=== PATIENT | female | born 1945 | race Caucasian/White ===

== ENCOUNTER 2017-05-07 20:28 | Inpatient (IN) | payer MEDICARE, OTHER ==
--- NOTE | 2017-05-07 21:21 | EDM.PDOC ---
ED HPI GENERAL MEDICAL PROBLEM - General Chief Complaint: Cardiovascular Problem Stated Complaint: PAIN UNDER LEFT BREAST SOB Time Seen by Provider: 05/07/17 20:45 Source of Information: Reports: Patient History Limitations: Reports: No Limitations - History of Present Illness INITIAL COMMENTS - FREE TEXT/NARRATIVE: The patient states that she developed left-sided chest pain around noon today while performing physical therapy exercises, however, the pain persists even if she remains still. She describes the pain as a dull ache. She has dyspnea on exertion, but no shortness of breath at rest. No recent fever, cough, or palpitations. No recent nausea, vomiting, constipation, diarrhea, or urinary symptoms. The patient is concerned, because she had similar symptoms in October 2015, and was subsequently diagnosed with a pulmonary embolus. She was initially started on Eliquis for 6 weeks, but her insurance company had her change to Lovenox, then Coumadin. A hypercoagulable workup per Dr. Diaz was negative. The patient remained on Coumadin until October 2016, at which time Dr. Diaz discontinued it, and has been on aspirin only since then. The patient was scheduled for a right total knee arthroplasty, and therefore held all of her medicines, but developed superficial thrombophlebitis of her right calf this past 05/02/2017, therefore the surgery has been rescheduled to May. The patient denies recent lower extremity edema. No injury to either lower extremity. No recent travel. The patient's PCP is Dr. Brii Esparza. Left Breast Pain Score (Numeric/FACES): 5 - Related Data Allergies Allergy/AdvReac Type Severity Reaction Status Date / Time No Known Allergies Allergy Verified 03/18/16 06:00 Home Meds: Home Meds . 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: Musculoskeletal History: Reports: Back Pain, Chronic - Infectious Disease History Infectious Disease History: Reports: Measles - Past Surgical History GI Surgical History: Reports: Appendectomy, Cholecystectomy, Colonoscopy, Lysis of Adhesions (x 1) Female Surgical History: Reports: Hysterectomy Musculoskeletal Surgical History: Reports: Other (See Below) (Spinal epidural injections) Social & Family History - Tobacco Use Smoking Status *Q: Never Smoker Second Hand Smoke Exposure: No - Caffeine Use Caffeine Use: Reports: Coffee, Soda, Tea - Alcohol Use Alcohol Use History: Yes Alcohol Use Frequency: Socially - Recreational Drug Use Recreational Drug Use: No - Living Situation & Occupation Living situation: Reports: , with Spouse Occupation: Retired ED ROS GENERAL - Review of Systems Review Of Systems: ROS reveals no pertinent complaints other than HPI. ED EXAM, GENERAL - Physical Exam Exam: See Below Exam Limited By: No Limitations General Appearance: Alert, WD/WN, No Apparent Distress Eye Exam: Bilateral Eye: Normal Inspection Ears: Normal External Exam, Hearing Grossly Normal Nose: Normal Inspection, No Blood Throat/Mouth: Normal Inspection, Normal Lips, Normal Voice, No Airway Compromise Head: Atraumatic, Normocephalic Neck: Normal Inspection, Full Range of Motion Respiratory/Chest: No Respiratory Distress, Lungs Clear, Normal Breath Sounds, No Accessory Muscle Use, Other (Reproducible tenderness to palpation of the left 4th intercostal space, anterior axillary line. No rub to auscultation of this area.). No: Crackles, Rhonchi, Wheezing, Pleural Rub Cardiovascular: Normal Peripheral Pulses, Regular Rate, Rhythm, No Gallop, No JVD, No Murmur, No Rub Peripheral Pulses: 4+: Radial (L), Radial (R) GI/Abdominal: Normal Bowel Sounds, Soft, Non-Tender, No Organomegaly, No Distention, No Abnormal Bruit, No Mass (Female) Exam: Deferred Rectal (Female) Exam: Deferred Back Exam: Normal Inspection, Full Range of Motion, NT Extremities: Normal Inspection, Normal Range of Motion, No Pedal Edema, Normal Capillary Refill, Other (Superficial thrombophlebitis to the posteromedial aspect of the right calf) Neurological: Alert, Oriented, Normal Cognition, No Motor/Sensory Deficits Psychiatric: Normal Affect Skin Exam: Warm, Dry, Intact, Normal Color, No Rash EKG INTERPRETATION EKG Date: 05/07/17 Time: 21:16 Rhythm: NSR Rate (Beats/Min): 73 Boyce: Normal P-Wave: Present QRS: Normal ST-T: Normal QT: Normal Comparison: NA - No Prior EKG Course - Vital Signs Last Recorded V/S: Last Vital Signs Temp 36.0 C 05/07/17 20:39 Pulse 79 05/07/17 20:39 Resp 22 H 05/07/17 20:39 BP 134/76 05/07/17 20:39 Pulse Ox 100 05/07/17 20:39 - Orders/Labs/Meds Orders: Active Orders 24 hr Category Date Time Status EKG Documentation Completion [RC] STAT Care 05/07/17 20:56 Active Ang Chest [CT] Stat Exams 05/07/17 22:08 Taken Chest 2V [CR] Stat Exams 05/07/17 20:56 Taken Sodium Chloride 0.9% [Normal Saline] 1,000 ml Med 05/07/17 22:15 Active IV ASDIRECTED Sodium Chloride 0.9% [Normal Saline] 100 ml Med 05/07/17 22:30 Active IV ASDIRECTED Sodium Chloride 0.9% [Saline Flush] Med 05/07/17 22:17 Active 10 ml FLUSH ONETIME PRN Warfarin [Coumadin] Med 05/07/17 23:47 Once 5 mg PO ONETIME ONE Medication Orders Sodium Chloride (Normal Saline) 1,000 mls @ 150 mls/hr IV ASDIRECTED TIAN Last Admin: 05/07/17 22:15 Dose: 150 mls/hr Sodium Chloride (Normal Saline) 100 mls @ 65 mls/hr IV ASDIRECTED TIAN Last Admin: 05/07/17 22:37 Dose: 65 mls/hr Sodium Chloride (Saline Flush) 10 ml FLUSH ONETIME PRN PRN Reason: IV FLUSH Last Admin: 05/07/17 22:37 Dose: 10 ml Labs: Laboratory Tests 05/07/17 05/07/17 05/07/17 Range/Units 21:09 21:09 21:09 WBC 9.91 (3.98-10.04) K/mm3 RBC 4.29 (3.98-5.22) M/mm3 Hgb 13.3 (11.2-15.7) gm/L Hct 40.0 (34.1-44.9) % MCV 93.2 (79.4-94.8) fl MCH 31.0 (25.6-32.2) pg MCHC 33.3 (32.2-35.5) g/dl RDW Std Deviation 45.3 (36.4-46.3) fL Plt Count 221 (182-369) K/mm3 MPV 9.4 (9.4-12.3) fl Neutrophils % (Manual) 72 H (40-60) % Band Neutrophils % 0 (0-10) % Lymphocytes % (Manual) 14 L (20-40) % Atypical Lymphs % 0 % Monocytes % (Manual) 14 H (2-10) % Eosinophils % (Manual) 0 L (0.7-5.8) % Basophils % (Manual) 0 L (0.1-1.2) Platelet Estimate Adequate Plt Morphology Comment Normal RBC Morph Comment Normal PT 10.2 (8.0-13.0) SECONDS INR 0.94 APTT 25 (22-36) SECONDS D-Dimer, Quantitative 4.02 H (0.19-0.59) mg/L Puncture Site ABG pH (7.35-7.45) ABG pCO2 (35.0-45.0) mmHg ABG pO2 (80.0-100.0) mmHg ABG HCO3 (22.0-26.0) meq/L ABG O2 Saturation (96.0-97.0) % ABG Base Excess (-2-2.0) Justin Test A-a Gradient mmHg O2 Delivery Device FiO2 (21.00-100.00) % Sodium 135 L (136-145) mEq/L Potassium 3.8 (3.5-5.1) mEq/L Chloride 101 (98-107) mEq/L Carbon Dioxide 25 (21-32) mEq/L Anion Gap 12.8 (5-15) BUN 11 (7-18) mg/dL Creatinine 0.8 (0.55-1.02) mg/dL Est Cr Clr Drug Dosing 66.43 mL/min Estimated GFR (MDRD) > 60 (>60) mL/min BUN/Creatinine Ratio 13.8 L (14-18) Glucose 140 H (83-115) mg/dL Calcium 8.8 (8.5-10.1) mg/dL Total Bilirubin 0.5 (0.2-1.0) mg/dL AST 17 (15-37) U/L ALT 25 (14-59) U/L Alkaline Phosphatase 71 (46-116) U/L Troponin I < 0.017 (0.00-0.056) ng/mL NT-Pro-B Natriuret Pep (0-125) pg/mL Total Protein 7.0 (6.4-8.2) g/dl Albumin 3.4 (3.4-5.0) g/dl Globulin 3.6 gm/dL Albumin/Globulin Ratio 0.9 L (1-2) 05/07/17 05/07/17 Range/Units 21:09 21:20 WBC (3.98-10.04) K/mm3 RBC (3.98-5.22) M/mm3 Hgb (11.2-15.7) gm/L Hct (34.1-44.9) % MCV (79.4-94.8) fl MCH (25.6-32.2) pg MCHC (32.2-35.5) g/dl RDW Std Deviation (36.4-46.3) fL Plt Count (182-369) K/mm3 MPV (9.4-12.3) fl Neutrophils % (Manual) (40-60) % Band Neutrophils % (0-10) % Lymphocytes % (Manual) (20-40) % Atypical Lymphs % % Monocytes % (Manual) (2-10) % Eosinophils % (Manual) (0.7-5.8) % Basophils % (Manual) (0.1-1.2) Platelet Estimate Plt Morphology Comment RBC Morph Comment PT (8.0-13.0) SECONDS INR APTT (22-36) SECONDS D-Dimer, Quantitative (0.19-0.59) mg/L Puncture Site Lt radial ABG pH 7.44 (7.35-7.45) ABG pCO2 35.7 (35.0-45.0) mmHg ABG pO2 75.0 L (80.0-100.0) mmHg ABG HCO3 23.6 (22.0-26.0) meq/L ABG O2 Saturation 96.3 (96.0-97.0) % ABG Base Excess 0.3 (-2-2.0) Justin Test Positive A-a Gradient 15 mmHg O2 Delivery Device Room air FiO2 21.00 (21.00-100.00) % Sodium (136-145) mEq/L Potassium (3.5-5.1) mEq/L Chloride (98-107) mEq/L Carbon Dioxide (21-32) mEq/L Anion Gap (5-15) BUN (7-18) mg/dL Creatinine (0.55-1.02) mg/dL Est Cr Clr Drug Dosing mL/min Estimated GFR (MDRD) (>60) mL/min BUN/Creatinine Ratio (14-18) Glucose (83-115) mg/dL Calcium (8.5-10.1) mg/dL Total Bilirubin (0.2-1.0) mg/dL AST (15-37) U/L ALT (14-59) U/L Alkaline Phosphatase (46-116) U/L Troponin I (0.00-0.056) ng/mL NT-Pro-B Natriuret Pep 193 H (0-125) pg/mL Total Protein (6.4-8.2) g/dl Albumin (3.4-5.0) g/dl Globulin gm/dL Albumin/Globulin Ratio (1-2) Meds: Medications Generic Name Dose Route Start Last Admin Trade Name Rushq PRN Reason Stop Dose Admin Sodium Chloride 1,000 mls @ 150 mls/hr 05/07/17 22:15 05/07/17 22:15 Normal Saline IV 150 mls/hr ASDIRECTED TIAN Administration Sodium Chloride 100 mls @ 65 mls/hr 05/07/17 22:30 05/07/17 22:37 Normal Saline IV 65 mls/hr ASDIRECTED TIAN Administration Sodium Chloride 10 ml 05/07/17 22:17 05/07/17 22:37 Saline Flush FLUSH 10 ml ONETIME PRN Administration IV FLUSH Discontinued Medications Generic Name Dose Route Start Last Admin Trade Name Rushq PRN Reason Stop Dose Admin Enoxaparin Sodium 80 mg 05/07/17 23:21 05/07/17 23:28 Lovenox SUBCUT 05/07/17 23:22 80 mg ONETIME STA Administration Hydromorphone HCl 0.5 mg 05/07/17 22:10 05/07/17 22:15 Dilaudid IVPUSH 05/07/17 22:11 0.5 mg ONETIME STA Administration Iopamidol 100 ml 05/07/17 22:17 05/07/17 22:37 Isovue-370 (76%) IVPUSH 05/07/17 22:18 100 ml ONETIME ONE Administration Warfarin Sodium 5 mg 05/07/17 23:47 Coumadin PO 05/07/17 23:48 ONETIME ONE - Re-Assessments/Exams Free Text/Narrative Re-Assessment/Exam: 05/07/17 21:29 Two-view chest radiograph appears to be grossly normal. Cardiac silhouette is within normal limits. No pulmonary vascular congestion. No pleural effusions. No focal infiltrate, although there does appear to be some pleural thickening seen on the lateral view only, just over the left anterior hemidiaphragm. No pneumothorax. Formal read per the Radiologist pending. 05/07/17 22:09 The D-dimer has returned substantially elevated at 4.02. I have ordered a CT angiogram of the chest to evaluate for PE, along with IV fluid. 05/07/17 23:22 CT angiogram of the chest is read by virtual radiology as: 1. RIGHT and LEFT segmental/subsegmental pulmonary emboli. 2. Possible mild pulmonary edema versus multifocal pneumonia. Possible LEFT posterior basilar lower lobe infarct versus pneumonia/atelectasis. Based on the CT angiogram results, I have ordered Lovenox 80 mg SQ. 05/07/17 23:51 Test results discussed with the patient. The patient had told me earlier that she had initially been put on our request following her prior diagnosis of a PE , however, her insurance company switched her to Coumadin after 6 weeks. Based on that information, I elected to start the patient on Lovenox this time, instead of starting her on one of the newer generation anticoagulants. This approach, however, requires to the hospital. The patient is agreeable with the plan. The CT and exam indicates a possible multifocal pneumonia, however, the patient does not have a fever, a cough, or an elevated WBC count, therefore I do not believe that the radiographic findings are due to pneumonia. I am not going to start her on an antibiotic. Case then discussed with Dr. Tamez at 23:42. She would like me to start the patient on Coumadin 5.0 mg at this time, and agrees to admit the patient. Departure - Departure Time of Disposition: 23:48 Disposition: Admitted As Inpatient 66 Condition: Fair Clinical Impression: Pulmonary emboli - My Orders Last 24 Hours: My Active Orders 05/07/17 20:56 EKG Documentation Completion [RC] STAT Chest 2V [CR] Stat 05/07/17 22:08 Ang Chest [CT] Stat 05/07/17 22:15 Sodium Chloride 0.9% [Normal Saline] 1,000 ml IV ASDIRECTED 05/07/17 22:17 Sodium Chloride 0.9% [Saline Flush] 10 ml FLUSH ONETIME PRN 05/07/17 22:30 Sodium Chloride 0.9% [Normal Saline] 100 ml IV ASDIRECTED 05/07/17 23:47 Warfarin [Coumadin] 5 mg PO ONETIME ONE - Assessment/Plan Last 24 Hours: My Active Orders 05/07/17 20:56 EKG Documentation Completion [RC] STAT Chest 2V [CR] Stat 05/07/17 22:08 Ang Chest [CT] Stat 05/07/17 22:15 Sodium Chloride 0.9% [Normal Saline] 1,000 ml IV ASDIRECTED 05/07/17 22:17 Sodium Chloride 0.9% [Saline Flush] 10 ml FLUSH ONETIME PRN 05/07/17 22:30 Sodium Chloride 0.9% [Normal Saline] 100 ml IV ASDIRECTED 05/07/17 23:47 Warfarin [Coumadin] 5 mg PO ONETIME ONE
[2017-05-07] MEDS ORDERED: HYDROmorphone 0.5 MG/0.5 ML SYRINGE IVPUSH STA (22:10)
[2017-05-07] MEDS ORDERED: Sodium Chloride 0.9% 1,000 ML IV SCH (22:15)
[2017-05-07] MEDS ORDERED: Iopamidol 755 Mg/ML 100 ML Bottle IVPUSH ONE (22:17)
[2017-05-07] MEDS ORDERED: Sodium Chloride 0.9% 10 ML Syringe FLUSH PRN (22:17)
[2017-05-07] MEDS ORDERED: Sodium Chloride 0.9% 100 ML IV SCH (22:30)
[2017-05-07] MEDS ORDERED: Enoxaparin 80 MG/0.8 ML Syringe SUBCUT STA (23:21)
[2017-05-07] MEDS ORDERED: Warfarin 5 MG Tab PO ONE (23:47)
[2017-05-08] MEDS ORDERED: Acetaminophen 325 MG Tab PO PRN (01:34)
[2017-05-08] MEDS ORDERED: Temazepam 15 MG Cap PO PRN (01:35)
[2017-05-08] MEDS ORDERED: Ondansetron 4 MG/2 ML SDV IVPUSH PRN (01:36)
[2017-05-08] MEDS ORDERED: Sodium Chloride 0.9% 1,000 ML IV SCH (01:45)
[2017-05-08] MEDS: HYDROmorphone 0.5 MG/0.5 ML SYRINGE IVPUSH PRN ×2 (02:17→08:51)
--- NOTE | 2017-05-08 06:21 | PCM.HP ---
H&P History of Present Illness - General Date of Service: 05/08/17 Admit Problem/Dx: Admission Diagnosis/Problem Admission Diagnosis/Problem Pulmonary embolism Source of Information: Patient, Provider History Limitations: Reports: No Limitations - History of Present Illness Onset of Symptoms: Reports: Sudden Duration of Symptoms: Reports: Hour(s): Location: Reports: Chest Quality: Reports: Same as Previous Episode Improves with: Reports: Medication Worsens with: Reports: Movement Associated Symptoms: Reports: Chest Pain, Cough Left Breast Pain Score (Numeric/FACES): 5 - Related Data Allergies/Adverse Reactions: Allergies Allergy/AdvReac Type Severity Reaction Status Date / Time No Known Allergies Allergy Verified 03/18/16 06:00 Home Medications: Home Meds . 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: Musculoskeletal History: Reports: Back Pain, Chronic - Infectious Disease History Infectious Disease History: Reports: Measles - Past Surgical History Head Surgeries/Procedures: Reports: None HEENT Surgical History: Reports: None Cardiovascular Surgical History: Reports: None Respiratory Surgical History: Reports: None GI Surgical History: Reports: Appendectomy, Cholecystectomy, Colonoscopy, Lysis of Adhesions Female Surgical History: Reports: Hysterectomy Musculoskeletal Surgical History: Reports: None, Other (See Below) Social & Family History - Tobacco Use Smoking Status *Q: Former Smoker Used Tobacco, but Quit: No Second Hand Smoke Exposure: No - Caffeine Use Caffeine Use: Reports: Coffee Other Caffeine Use: a cup of coffee every day - Recreational Drug Use Recreational Drug Use: No - Living Situation & Occupation Living situation: Reports: , with Spouse Occupation: Retired H&P Review of Systems - Review of Systems: Review Of Systems: See Below General: Reports: No Symptoms HEENT: Reports: No Symptoms Pulmonary: Reports: Pleuritic Chest Pain Cardiovascular: Reports: Dyspnea on Exertion Gastrointestinal: Reports: No Symptoms Genitourinary: Reports: No Symptoms Musculoskeletal: Reports: No Symptoms Skin: Reports: No Symptoms Psychiatric: Reports: No Symptoms Neurological: Reports: No Symptoms Hematologic/Lymphatic: Reports: No Symptoms Immunologic: Reports: No Symptoms Exam - Exam Exam: See Below - Vital Signs Vital Signs: Last Vital Signs Temp 37.1 C 05/08/17 01:14 Pulse 74 05/08/17 01:14 Resp 18 05/08/17 01:14 BP 126/48 L 05/08/17 01:14 Pulse Ox 100 05/08/17 01:14 Weight: 76.385 kg - Exam General: Alert, Oriented, Cooperative, Mild Distress HEENT: Conjunctiva Clear, Nares Patent, Normal Nasal Septum, Pupils Equal, Pupils Reactive, PERRLA Neck: Supple, Trachea Midline Lungs: Clear to Auscultation, Normal Respiratory Effort Cardiovascular: Regular Rate, Regular Rhythm GI/Abdominal Exam: Normal Bowel Sounds, Soft, Non-Tender, No Organomegaly, No Distention (Female) Exam: Deferred Rectal (Female) Exam: Deferred Back Exam: Normal Inspection Extremities: Normal Inspection, No Pedal Edema, Normal Capillary Refill Skin: Warm Neurological: Cranial Nerves Intact Neuro Extensive - Mental Status: Alert, Oriented x3, Normal Mood/Affect, Normal Cognition, Memory Intact Neuro Extensive - Motor, Sensory, Reflexes: CN II-XII Intact Psychiatric: Alert, Normal Affect, Normal Mood - Patient Data Lab Results Last 24 hrs: Laboratory Results - last 24 hr 05/08/17 05/08/17 Range/Units 02:10 04:47 WBC 8.79 (3.98-10.04) K/mm3 RBC 3.84 L (3.98-5.22) M/mm3 Hgb 12.0 (11.2-15.7) gm/L Hct 36.6 (34.1-44.9) % MCV 95.3 H (79.4-94.8) fl MCH 31.3 (25.6-32.2) pg MCHC 32.8 (32.2-35.5) g/dl RDW Std Deviation 45.6 (36.4-46.3) fL Plt Count 215 (182-369) K/mm3 MPV 9.8 (9.4-12.3) fl Neut % (Auto) 65.7 (34.0-71.1) % Lymph % (Auto) 19.7 (19.3-51.7) % [place] % (Auto) 13.7 H (4.7-12.5) % Eos % (Auto) 0.6 L (0.7-5.8) Baso % (Auto) 0.1 (0.1-1.2) % Neut # (Auto) 5.78 (1.56-6.13) K/mm3 Lymph # (Auto) 1.73 (1.18-3.74) K/mm3 [place] # (Auto) 1.20 H (0.24-0.36) K/mm3 Eos # (Auto) 0.05 (0.04-0.36) K/mm3 Baso # (Auto) 0.01 (0.01-0.08) K/mm3 PT 10.4 (8.0-13.0) SECONDS INR 0.96 Result Diagrams: 05/08/17 04:47 05/07/17 21:09 *Q Meaningful Use (ADM) - VTE *Q VTE Criteria *Q: - Stroke *Q Stroke Criteria *Q: - AMI *Q AMI Criteria *Q: - Problem List (1) Hyperlipidemia SNOMED Code(s): 82076318 ICD Code: E78.5 - HYPERLIPIDEMIA, UNSPECIFIED Status: Acute Current Visit : Yes (2) Pulmonary emboli SNOMED Code(s): 33880431 ICD Code: I26.99 - OTHER PULMONARY EMBOLISM WITHOUT ACUTE COR PULMONALE Status: Acute Current Visit: Yes Problem List Initiated/Reviewed/Updated: Yes Orders Last 24hrs: Active Orders 24 hr Category Date Time Status Bedrest Bathroom Privileges [RC] 10,22 Care 05/08/17 01:42 Active Communication Order [RC] , Care 05/08/17 01:40 Active Heart Healthy Diet [DIET] Diet 05/08/17 Breakfast Active BASIC METABOLIC PANEL,BMP [CHEM] Routine Lab 05/08/17 04:47 Received CRP [C-REACTIVE PROTEIN] [CHEM] Routine Lab 05/08/17 04:47 Received INR,PT,PROTHROMBIN TIME [COAG] Timed Lab 05/08/17 04:47 Received MAGNESIUM [CHEM] Routine Lab 05/08/17 04:47 Received PRO B-TYPE NATRIUR PEPT,BNPPRO [CHEM] Routine Lab 05/08/17 04:47 Received Acetaminophen [Tylenol] Med 05/08/17 01:34 Active 650 mg PO Q6H PRN Enoxaparin [Lovenox] Med 05/08/17 09:00 Active 80 mg SUBCUT Q12HR HYDROmorphone [Dilaudid] Med 05/08/17 01:38 Active 0.5 mg IVPUSH Q2H PRN Ondansetron [Zofran] Med 05/08/17 01:36 Active 4 mg IVPUSH Q8H PRN Sodium Chloride 0.9% [Normal Saline] 1,000 ml Med 05/08/17 01:45 Active IV ASDIRECTED Temazepam [Restoril] Med 05/08/17 01:35 Active 15 mg PO BEDTIME PRN Warfarin [Coumadin] Med 05/08/17 18:00 Active 5 mg PO DAILY@1800 Code Status [Resuscitation Status] Routine Resus Stat 05/08/17 01:47 Ordered Medication Orders Acetaminophen (Tylenol) 650 mg PO Q6H PRN PRN Reason: Pain/Fever Enoxaparin Sodium (Lovenox) 80 mg SUBCUT Q12HR [facility] Hydromorphone HCl (Dilaudid) 0.5 mg IVPUSH Q2H PRN PRN Reason: Pain Last Admin: 05/08/17 02:17 Dose: 0.5 mg Sodium Chloride (Normal Saline) 1,000 mls @ 50 mls/hr IV ASDIRECTED TIAN Stop: 05/08/17 08:00 Ondansetron HCl (Zofran) 4 mg IVPUSH Q8H PRN PRN Reason: Nausea Sodium Chloride (Saline Flush) 10 ml FLUSH ONETIME PRN PRN Reason: IV FLUSH Last Admin: 05/07/17 22:37 Dose: 10 ml Temazepam (Restoril) 15 mg PO BEDTIME PRN PRN Reason: Sleep Warfarin Sodium (Coumadin) 5 mg PO DAILY@1800 [facility] Assessment/Plan Comment:: Impression: Chest pain, bilateral PE History of previous right sided PE. Recent superficial thrombophlebitis Right knee arthroplasty--postponed Hyperlipidemia Plan: Lovenox with coumadin until Rx coverage for NOAC is determined Pharmacy to dose coumadin Home meds none Daily labs Pain mgt DVT/GI prophylaxis
[2017-05-08] MEDS ORDERED: Enoxaparin 80 MG/0.8 ML Syringe SUBCUT SCH (09:00)
[2017-05-08] MEDS ORDERED: Acetaminophen/HYDROcodone 325-5 MG Tab PO PRN (10:08)
--- NOTE | 2017-05-08 12:38 | PCM.SN ---
- Free Text/Narrative Note: Patient seen and examined with at bedside. She seems to be doing just fine. Her pain is controlled. We discussed anticoagulation options: Warfarin vs NOACs. She will call her local pharmacy and will let me know sometime today.
--- NOTE | 2017-05-08 13:01 | CR ---
Chest: Two views of the chest were obtained. Comparison: No prior chest x-ray is available. Heart size and mediastinum are within normal limits. Lungs are clear but hyperinflated suggesting emphysematous change. Previous right shoulder surgery is noted. Impression: 1. Emphysematous change. Nothing acute is appreciated. Diagnostic code #2
--- NOTE | 2017-05-08 13:01 | CT ---
CT chest Technique: Multiple axial sections through the chest were obtained. Intravenous contrast was utilized. Study has been performed as a pulmonary angiogram protocol. Findings: Multiple subsegmental pulmonary emboli are seen within both lower lung arteries as well as within several subsegmental branches within the right upper lung. No pulmonary emboli seen within the main pulmonary arteries or within the main segmental arteries. Mediastinum and hilar regions show no adenopathy or mass. No pericardial thickening is seen. Cyst identified within the left kidney measuring 5.3 cm. Cyst identified within the anterior right lobe of the liver measuring 9 mm. Mild intrahepatic biliary duct dilatation is seen. Small left-sided pleural effusion is seen with some loculation of the left lower lung pleural effusion. Mild ground-glass appearance is seen within both lower lungs most likely secondary to the pulmonary emboli. Bone window settings appear within normal limits for the patient's age. Incidental note of prior right shoulder surgery. Impression: 1. Small pulmonary emboli mostly subsegmental in location within both lower lungs and right upper lung. 2. Small left sided pleural effusion showing some loculations. 3. Mild basilar ground-glass appearance likely caused by the pulmonary emboli. 4. Other incidental findings as noted above. Diagnostic code #5 Agree with preliminary report issued by [employer] ([facility] preliminary report dictated on 05/08/17, 12:12 AM Central Time)
[2017-05-08] MEDS ORDERED: Warfarin Sliding Scale PO SCH (18:00)
[2017-05-08] MEDS ORDERED: Warfarin 5 MG Tab PO SCH (18:00)
--- NOTE | 2017-05-09 08:11 | PCM.DCSUM1 ---
Discharge Summary - Hospital Course Free Text/Narrative:: The patient states that she developed left-sided chest pain around noon today while performing physical therapy exercises, however, the pain persists even if she remains still. She describes the pain as a dull ache. She has dyspnea on exertion, but no shortness of breath at rest. No recent fever, cough, or palpitations. No recent nausea, vomiting, constipation, diarrhea, or urinary symptoms. The patient is concerned, because she had similar symptoms in October 2015, and was subsequently diagnosed with a pulmonary embolus. She was initially started on Eliquis for 6 weeks, but her insurance company had her change to Lovenox, then Coumadin. A hypercoagulable workup per Dr. Diaz was negative. The patient remained on Coumadin until October 2016, at which time Dr. Diaz discontinued it, and has been on aspirin only since then. The patient was scheduled for a right total knee arthroplasty, and therefore held all of her medicines, but developed superficial thrombophlebitis of her right calf this past 05/02/2017, therefore the surgery has been rescheduled to May. The patient denies recent lower extremity edema. No injury to either lower extremity. No recent travel. The patient's PCP is Dr. Brii Esparza. - Discharge Data Discharge Date: 05/09/17 (admit date 05/08/17) Discharge Disposition: Home, Self-Care 01 Condition: Good - Discharge Diagnosis/Problem(s) (1) Pulmonary emboli SNOMED Code(s): 86030455 ICD Code: I26.99 - OTHER PULMONARY EMBOLISM WITHOUT ACUTE COR PULMONALE Status: Acute Priority: High Current Visit: Yes Qualifiers: Pulmonary embolism type: other Chronicity: acute (2) Hyperlipidemia SNOMED Code(s): 61847697 ICD Code: E78.5 - HYPERLIPIDEMIA, UNSPECIFIED Status: Chronic Priority: Medium Current Visit: No Qualifiers: Hyperlipidemia type: unspecified Qualified Code(s): E78.5 - Hyperlipidemia , unspecified - Patient Summary/Data Operative Procedure(s) Performed: None Complications: None Consults: None Labs Pending at D/C: None Recommended Follow-up Testing/Procedures: Patient DC instructions: Follow up with your Primary Care Provider within 5 days of discharge Will need to decrease dose of Xarelto in 21 days- discuss with PCP IS every 2 hours while awake Ambulate Planned Operative Procedure(s) after DC: None Hospital Course: Maritza is a pleasant 72yo female admitted overnight for acute PE (has hx of prior PE, see above noted notes). She was initially given lovenox and coumadin in ED and admitted for overnight stay/observation. She did well overnight, VSS, maintained O2 saturations. Dr. Patel discussed anticoagulant options with her, she contacted her Pharmacy , elects Xarelto. She will be discharged home today on Xarelto 15mg BID x 21 days, follow up with PCP, Dr. Esparza, within 5 days of discharge. Education provided on PE, Xarelto therapy. - Patient Instructions Diet: Heart Healthy Diet, Drink 8-10+ Glasses/Day Activity: As Tolerated Showering/Bathing: May Shower Notify Provider of: Fever, Increased Pain, Swelling and Redness, Nausea and/or Vomiting - Discharge Plan Prescriptions/Med Rec: Acetaminophen/HYDROcodone [[place] 325-5 MG] 1 tab PO Q4H PRN #10 tablet PRN Reason: PAIN Rivaroxaban [Xarelto] 15 mg PO BID #42 tablet Home Medications: Home Meds Fish Oil/Sylva-3 Fatty Acids [Fish Oil] 500 mg PO DAILY 05/08/17 [History] Acetaminophen/HYDROcodone [[place] 325-5 MG] 1 tab PO Q4H PRN #10 tablet 05/09/17 [Rx] Rivaroxaban [Xarelto] 15 mg PO BID #42 tablet 05/09/17 [Rx] Patient Handouts: Rivaroxaban oral tablets, Pulmonary Embolism - Discharge Summary/Plan Comment DC Time >30 min.: Yes (40 min) - General Info Date of Service: 05/09/17 Admission Dx/Problem (Free Text: Admission Diagnosis/Problem Admission Diagnosis/Problem Pulmonary embolism Patient did well overnight. No concerns. VSS. Plans DC home today on xarelto. Functional Status: Reports: Pain Controlled, Tolerating Diet, Ambulating, Urinating, Incentive Spirometry - Review of Systems General: Reports: No Symptoms HEENT: Reports: No Symptoms Pulmonary: Reports: No Symptoms Cardiovascular: Reports: No Symptoms Gastrointestinal: Reports: No Symptoms Genitourinary: Reports: No Symptoms Musculoskeletal: Reports: No Symptoms Skin: Reports: No Symptoms Neurological: Reports: No Symptoms Psychiatric: Reports: No Symptoms - Patient Data Vitals - Most Recent: Last Vital Signs Temp 98.8 F 05/09/17 03:07 Pulse 56 L 05/09/17 03:07 Resp 16 05/09/17 03:07 BP 114/58 L 05/09/17 03:07 Pulse Ox 97 05/09/17 03:07 Weight - Most Recent: 168 lb I&O - Last 24 hours: Intake & Output 05/08/17 05/09/17 05/09/17 22:59 06:59 14:59 Intake Total 2460 600 Output Total 1250 1700 Balance 1210 -1100 Lab Results - Last 24 hrs: Laboratory Results - last 24 hr 05/08/17 05/09/17 05/09/17 Range/Units 04:47 05:35 05:35 WBC 5.64 (3.98-10.04) K/mm3 RBC 3.82 L (3.98-5.22) M/mm3 Hgb 11.8 (11.2-15.7) gm/L Hct 36.4 (34.1-44.9) % MCV 95.3 H (79.4-94.8) fl MCH 30.9 (25.6-32.2) pg MCHC 32.4 (32.2-35.5) g/dl RDW Std Deviation 45.9 (36.4-46.3) fL Plt Count 218 (182-369) K/mm3 MPV 9.6 (9.4-12.3) fl Neut % (Auto) 59.3 (34.0-71.1) % Lymph % (Auto) 25.4 (19.3-51.7) % [place] % (Auto) 13.5 H (4.7-12.5) % Eos % (Auto) 1.2 (0.7-5.8) Baso % (Auto) 0.2 (0.1-1.2) % Neut # (Auto) 3.35 (1.56-6.13) K/mm3 Lymph # (Auto) 1.43 (1.18-3.74) K/mm3 [place] # (Auto) 0.76 H (0.24-0.36) K/mm3 Eos # (Auto) 0.07 (0.04-0.36) K/mm3 Baso # (Auto) 0.01 (0.01-0.08) K/mm3 PT (8.0-13.0) SECONDS INR Sodium 137 (136-145) mEq/L Potassium 4.5 (3.5-5.1) mEq/L Chloride 103 (98-107) mEq/L Carbon Dioxide 27 (21-32) mEq/L Anion Gap 11.5 (5-15) BUN 12 (7-18) mg/dL Creatinine 0.7 (0.55-1.02) mg/dL Est Cr Clr Drug Dosing 75.92 mL/min Estimated GFR (MDRD) > 60 (>60) mL/min BUN/Creatinine Ratio 17.1 (14-18) Glucose 86 (83-115) mg/dL Calcium 8.7 (8.5-10.1) mg/dL Magnesium 2.2 (1.8-2.4) mg/dl C-Reactive Protein 6.1 H* (<1.0) mg/dL Med Orders - Current: Current Medications Acetaminophen (Tylenol) 650 mg PO Q6H PRN PRN Reason: Pain/Fever Hydrocodone Bitart/Acetaminophen ([place] 325-5 Mg) 1 tab PO Q4H PRN PRN Reason: PAIN Last Admin: 05/08/17 21:29 Dose: 1 tab Hydromorphone HCl (Dilaudid) 0.5 mg IVPUSH Q2H PRN PRN Reason: Pain Last Admin: 05/08/17 08:51 Dose: 0.5 mg Ondansetron HCl (Zofran) 4 mg IVPUSH Q8H PRN PRN Reason: Nausea Rivaroxaban (Xarelto) 15 mg PO BID TIAN Stop: 05/29/17 21:01 Sodium Chloride (Saline Flush) 10 ml FLUSH ONETIME PRN PRN Reason: IV FLUSH Last Admin: 05/07/17 22:37 Dose: 10 ml Temazepam (Restoril) 15 mg PO BEDTIME PRN PRN Reason: Sleep Discontinued Medications Enoxaparin Sodium (Lovenox) 80 mg SUBCUT ONETIME STA Stop: 05/07/17 23:22 Last Admin: 05/07/17 23:28 Dose: 80 mg Enoxaparin Sodium (Lovenox) 80 mg SUBCUT Q12HR TIAN Last Admin: 05/08/17 08:51 Dose: 80 mg Hydromorphone HCl (Dilaudid) 0.5 mg IVPUSH ONETIME STA Stop: 05/07/17 22:11 Last Admin: 05/07/17 22:15 Dose: 0.5 mg Sodium Chloride (Normal Saline) 1,000 mls @ 150 mls/hr IV ASDIRECTED [facility] Last Admin: 05/07/17 22:15 Dose: 150 mls/hr Sodium Chloride (Normal Saline) 100 mls @ 65 mls/hr IV ASDIRECTED [facility] Last Admin: 05/07/17 22:37 Dose: 65 mls/hr Sodium Chloride (Normal Saline) 1,000 mls @ 50 mls/hr IV ASDIRECTED [facility] Stop: 05/08/17 08:00 Iopamidol (Isovue-370 (76%)) 100 ml IVPUSH ONETIME ONE Stop: 05/07/17 22:18 Last Admin: 05/07/17 22:37 Dose: 100 ml Warfarin Sodium (Coumadin) 5 mg PO ONETIME ONE Stop: 05/07/17 23:48 Last Admin: 05/07/17 23:57 Dose: 5 mg Warfarin Sodium (Coumadin) 5 mg PO DAILY@1800 [facility] Warfarin Sodium (Coumadin Sliding Scale) 1 each PO DAILY TIAN - Exam Quality Assessment: Reports: DVT Prophylaxis General: Reports: Alert, Oriented, Cooperative, No Acute Distress HEENT: Reports: Pupils Equal, EOMI, Mucous Membr. Moist/[place] Neck: Reports: Supple Lungs: Reports: Normal Respiratory Effort, Decreased Breath Sounds Cardiovascular: Reports: Regular Rate, Regular Rhythm GI/Abdominal Exam: Normal Bowel Sounds, Soft, Non-Tender (Female) Exam: Deferred Rectal (Female) Exam: Deferred Back Exam: Reports: Normal Inspection Extremities: No Pedal Edema, Normal Capillary Refill Neurological: Reports: No New Focal Deficit Psy/Mental Status: Reports: Alert, Normal Affect, Normal Mood *Q Meaningful Use (DIS) - VTE *Q VTE Criteria *Q: - Stroke *Q Stroke Criteria *Q: - AMI *Q AMI Criteria *Q:
[2017-05-09 08:56] VITALS: BP 100/50
[2017-05-09] MEDS ORDERED: Rivaroxaban 10 MG Tab PO SCH (09:00)
== END 2017-05-09 10:48 | disposition home or self-care (01) | DRG 176 ==
LOC: JD.ED 20:28 → JD.MS 05-08 00:57
PROVIDERS: ADMIT Internal Medicine Cardiovascular Disease; ATTEND Internal Medicine Cardiovascular Disease
DX: I26.99 Other pulmonary embolism without acute cor pulmonale (principal); Z86.718 Personal history of other venous thrombosis and embolism; G89.29 Other chronic pain; E78.5 Hyperlipidemia, unspecified
CPT/HCPCS: 36415; 36600; 71046; 71275; 80053; 82803; 83880; 84484; 85025; 85379; 85610; 85730; 93005; 96361; 96372; 96374; 99285; A9270; J1170; J1650; J7030; J7040; J7050; Q9967; 80048; 83735; 86140

== ENCOUNTER 2018-04-10 08:19 | Day surgery (SDC) | payer MEDICARE, OTHER ==
[~2018-04-10 08:19] MED LIST: Acetaminophen 325 MG Tab PO SCH; Bisacodyl 5 MG Tab PO PRN; Cyclobenzaprine 10 MG Tab PO PRN; Lactated Ringers 1,000 ML IV SCH; Lidocaine 1%/Sod Bicarbonate in NS 8.4% 1 ML Syringe IDERM PRN; Magnesium Hydroxide 400 MG/5 ML Susp 30 ML Cup PO PRN; Morphine 2 MG/ML Syringe IVPUSH PRN; Naloxone 0.4 MG/ML SDV IVPUSH PRN; Ondansetron 4 MG/2 ML SDV IVPUSH PRN; Pregabalin 25 MG Cap PO SCH; Sennosides 8.6 MG Tab PO PRN; Sodium Chloride 0.9% 10 ML Syringe FLUSH PRN; oxyCODONE ER 10 MG TAB.ER PO SCH
--- NOTE | 2018-04-10 09:06 | PCM.PREANE ---
Preanesthetic Assessment - Anesthesia/Transfusion/Family Hx Anesthesia History: Prior Anesthesia Without Reaction Family History of Anesthesia Reaction: No Transfusion History: No Prior Transfusion(s) - Review of Systems General: No Symptoms Pulmonary: Other (hx of PE and DVT on xarelto with last dose 04/07/18 in am, last blood clot, 1 year ago) Cardiovascular: Other (ECHO, EF 60/65% no major issues, holter monitor, negative ) Gastrointestinal: No Symptoms Neurological: No Symptoms Other: Reports: Easy Bleeding, Easy Bruising (on xarelto) - Physical Assessment NPO Status Date: 04/09/18 NPO Status Time: 21:00 Pulse: 57 O2 Sat by Pulse Oximetry: 99 Respiratory Rate: 16 Blood Pressure: 118/68 Temperature: 36.4 C Vital Signs: Last Vital Signs Temp 36.4 C 04/10/18 08:35 Pulse 57 L 04/10/18 08:35 Resp 16 04/10/18 08:35 BP 118/68 04/10/18 08:35 Pulse Ox 99 04/10/18 08:35 Height: 1.75 m Weight: 73.1 kg ASA Class: 2 Mental Status: Alert & Oriented x3 Airway Class: Mallampati = 2 Dentition: Reports: Normal Dentition Thyro-Mental Finger Breadths: 3 Mouth Opening Finger Breadths: 3 ROM/Head Extension: Full Lungs: Clear to Auscultation, Normal Respiratory Effort Cardiovascular: Regular Rate, Regular Rhythm - Lab Values: Laboratory Last Values MRSA (PCR) Negative 03/22/18 11:50 - Allergies Allergies/Adverse Reactions: Allergies Allergy/AdvReac Type Severity Reaction Status Date / Time No Known Allergies Allergy Verified 04/07/18 14:39 - Blood Blood Available: No Product(s) Available: None - Anesthesia Plan Pre-Op Medication Ordered: None - Acknowledgements Anesthesia Type Planned: Spinal Pt an Appropriate Candidate for the Planned Anesthesia: Yes Alternatives and Risks of Anesthesia Discussed w Pt/Guardian: Yes Pt/Guardian Understands and Agrees with Anesthesia Plan: Yes PreAnesthesia Questionnaire HEENT History: Reports: Impaired Vision, Other (See Below) Other HEENT History: pt wears glasses Cardiovascular History: Reports: Blood Clots/VTE/DVT, High Cholesterol Other Cardiovascular History: leg venous ligation Respiratory History: Reports: PE Gastrointestinal History: Reports: Chronic Constipation Genitourinary History: Reports: None [employer] History: Reports: Musculoskeletal History: Reports: Back Pain, Chronic, Osteoarthritis, Other ( See Below) Other Musculoskeletal History: shoulder impingement, tibilais tendinitis, lower limb mononeuritis, congeintal pev cavus of right heel Neurological History: Reports: None Psychiatric History: Reports: None Endocrine/Metabolic History: Reports: Osteopenia, Vitamin D Deficiency Hematologic History: Reports: None Immunologic History: Reports: None Oncologic (Cancer) History: Reports: None Dermatologic History: Reports: None - Infectious Disease History Infectious Disease History: Reports: Measles - Past Surgical History Head Surgeries/Procedures: Reports: None HEENT Surgical History: Reports: None Cardiovascular Surgical History: Reports: None, Varicose Respiratory Surgical History: Reports: None GI Surgical History: Reports: Appendectomy, Cholecystectomy, Colonoscopy, Lysis of Adhesions Other GI Surgeries/Procedures: adhesions Female Surgical History: Reports: Cystoscopy, Hysterectomy Male Surgical History: Reports: None Endocrine Surgical History: Reports: None Neurological Surgical History: Reports: None Musculoskeletal Surgical History: Reports: Shoulder Surgery Oncologic Surgical History: Reports: None Dermatological Surgical History: Reports: None - SUBSTANCE USE Smoking Status *Q: Former Smoker Recreational Drug Use History: No - HOME MEDS Home Medications: Home Meds Acetaminophen with Codeine [Tylenol with Codeine #3 Tablet] 1 tab PO Q8H PRN [History] Calcium Carbonate [Calcium] 600 mg PO BID 04/07/18 [History] Cholecalciferol (Vitamin D3) [Vitamin D3] 5,000 unit PO DAILY 04/07/18 [History] Multivitamin [Poly-Vitamin] 1 tab PO DAILY 04/07/18 [History] Rivaroxaban [Xarelto] 20 mg PO DAILY 04/07/18 [History] - CURRENT (IN HOUSE) MEDS Current Meds: Current Medications Acetaminophen (Tylenol) 975 mg PO ONETIME TIAN Stop: 04/10/18 14:00 Bisacodyl (Dulcolax) 5 mg PO DAILY PRN PRN Reason: Constipation Cyclobenzaprine HCl (Flexeril) 10 mg PO TID PRN PRN Reason: Spasms Docusate Sodium (Colace) 100 mg PO BID TIAN Famotidine (Pepcid) 20 mg PO Q12H TIAN Lactated Ringer's (Ringers, Lactated) 1,000 mls @ 125 mls/hr IV ASDIRECTED [facility] Stop: 04/10/18 23:00 Cefazolin Sodium/Dextrose 2 gm (/ Premix) 50 mls @ 100 mls/hr IV Q8H [facility] Stop: 04/10/18 23:29 Ketorolac Tromethamine (Toradol) 15 mg IVPUSH Q6H PRN PRN Reason: Pain Lidocaine/Sodium Bicarbonate (Buffered Lidocaine 1% In Ns 8.4%) 0.25 ml IDERM ONETIME PRN PRN Reason: Prior to IV Start Stop: 04/10/18 18:00 Magnesium Hydroxide (Milk Of Magnesia) 30 ml PO BID PRN PRN Reason: Constipation Morphine Sulfate (Morphine) 2 mg IVPUSH Q2H PRN PRN Reason: Breakthrough Pain Naloxone HCl (Narcan) 0.1 mg IVPUSH Q5M PRN PRN Reason: Oversedation Ondansetron HCl (Zofran) 4 mg IVPUSH Q6H PRN PRN Reason: Nausea/Vomiting Oxycodone HCl (Oxycontin) 10 mg PO ONETIME [facility] Stop: 04/10/18 14:00 Oxycodone/Acetaminophen (Percocet 325-5 Mg) 1 - 2 tab PO Q4H PRN PRN Reason: Pain Pregabalin (Lyrica) 50 mg PO ONETIME [facility] Stop: 04/10/18 14:00 Senna (Senna) 8.6 mg PO BID PRN PRN Reason: Constipation Sodium Chloride (Saline Flush) 10 ml FLUSH ASDIRECTED PRN PRN Reason: Keep Vein Open Stop: 04/10/18 18:00 Discontinued Medications Morphine Sulfate 8 mg/Epinephrine HCl 0.3 mg/Cefuroxime Sodium 750 mg/Ketorolac Tromethamine 30 mg/Sodium Chloride 27.9 ml 0 mg .XX ONETIME ONE Stop: 04/10/18 06:57
[2018-04-10] MEDS ORDERED: EPINEPHrine 1 MG/ML SDV ONE (09:18)
[2018-04-10] MEDS ORDERED: Ropivacaine 0.5% 5 MG/ML 30 ML SDV ONE (09:18)
[2018-04-10] MEDS ORDERED: Propofol 200 MG/20 ML SDV ONE ×2 (09:46→09:47)
[2018-04-10] MEDS ORDERED: Ondansetron 4 MG/2 ML SDV ONE (09:47)
[2018-04-10] MEDS ORDERED: ceFAZolin 1 GM Vial ONE (09:47)
[2018-04-10] MEDS ORDERED: Lactated Ringers 1,000 ML ONE ×2 (09:47→13:47)
[2018-04-10] MEDS ORDERED: Dexamethasone 4 MG/ML SDV ONE ×2 (09:47→09:48)
[2018-04-10] MEDS ORDERED: Ketorolac 30 MG/ML SDV ONE (09:47)
[2018-04-10] MEDS ORDERED: fentaNYL 100 MCG/2 ML SDV ONE (09:48)
[2018-04-10] MEDS ORDERED: Midazolam 1 MG/ML 2 ML SDV ONE (09:48)
[2018-04-10] MEDS ORDERED: Lidocaine 1% 4 ML ONE (09:48)
[2018-04-10] MEDS ORDERED: ePHEDrine/Normal Saline 25 MG/5 ML Syringe ONE (12:31)
[2018-04-10] MEDS ORDERED: Phenylephrine/Normal Saline 100 MCG/ML 10 ML Syringe ONE (12:54)
[2018-04-10] MEDS: Iodine/Sodium Iodide 2% Tincture 30 ML Bottle ONE ×2 (12:56→13:17)
[2018-04-10] MEDS: ceFAZolin 1 GM Vial ONE ×2 (12:57→13:19)
[2018-04-10] MEDS: Morphine 8 MG, EPINEPHrine 0.3 MG, Cefuroxime 750 MG, Ketorolac 30 MG, Sodium Chloride ... ONE ×15 (12:57→15:51)
[2018-04-10] MEDS: Bupivacaine 0.25% 30 ML SDV ONE ×2 (12:58→13:23)
[2018-04-10] MEDS: Vancomycin 1 GM SDV ONE ×2 (12:58→13:26)
[2018-04-10] MEDS: Triamcinolone Acetonide 40 MG/ML 1 ML MDV ONE ×2 (12:59→13:49)
[2018-04-10] MEDS ORDERED: Ketorolac 15 MG/ML SDV IVPUSH PRN (13:00)
[2018-04-10] MEDS: Bupivacaine 0.25% 10 ML SDV ONE ×2 (13:00→13:49)
--- NOTE | 2018-04-10 14:01 | PCM.POSTAN ---
POST ANESTHESIA ASSESSMENT - MENTAL STATUS Mental Status: Alert, Oriented - VITAL SIGNS Pulse Rate: 76 SaO2: 97 Resp Rate: 18 Blood Pressure: 106/54 Temperature: 37.3 C - RESPIRATORY Respiratory Status: Respiratory Rate WNL, Airway Patent, O2 Saturation Stable, Supplemental Oxygen - CARDIOVASCULAR CV Status: Pulse Rate WNL, Blood Pressure Stable - GASTROINTESTINAL GI Status: No Symptoms - PAIN Pain Score: 0 - POST OP HYDRATION Hydration Status: Adequate & Stable
[2018-04-10] MEDS ORDERED: fentaNYL 100 MCG/2 ML SDV IVPUSH PRN (14:02)
--- NOTE | 2018-04-10 14:34 | PCM.SN ---
- Free Text/Narrative Note: Left selective femoral nerve block at the adductor canal for post-procedure pain control Time Out: 1400 Start: 1400 End: 1407 Chart reviewed. Consent signed. Questions answered. Appropriate monitors applied. Time out performed. Left mid-shaft femur evaluated with ultrasound. Scanning medially femur, I was able to identify the femoral artery in the adductor canal. The saphenous nerve was lateral to the artery. The skin was prepped lateral to the ultrasound probe with chlorahexadine. The 21ga 4 insulated block needle was inserted under direct ultrasound guidance into the adductor canal. 25mL of 0.5% ropivacaine with 1:200,000 epinephrine was injected cirmcumferentially about the nerve with intermittent negative aspiration every 5mL. Patient tolerated the procedure well. See pictures on progress note and vital signs on nurses notes. Block completed postoperatively. Rain Sosa CRNA
--- NOTE | 2018-04-10 14:35 | CR ---
Left knee: AP and lateral portable views of left knee were obtained. Comparison: No prior knee exam is available. Knee prosthesis is seen. Components are aligned. Soft tissue air is noted. Underlying bony structures are intact. Impression: 1. Satisfactory appearance of recently placed left knee prosthesis. Diagnostic code #2
[2018-04-10] MEDS ORDERED: HYDROmorphone 0.5 MG/0.5 ML Syringe IVPUSH PRN (14:38)
--- NOTE | 2018-04-10 16:17 | PCM.SN ---
- Free Text/Narrative Note: Maritza is a 73 yo [address] patient of Dr. Bhatt who is post-operative day 0 of L TKA and R cortisone injection. Hospital medicine was consulted for post- operative medical care. At this time she is stable. Pain is controlled. She denies any chest pain, shortness of breath, n/v, or palpitations. She carries a history of: PE, HLD, Vitamin D, Osteopenia. She is a former smoker. She is a full code. Her PCP is Dr. Brii Esparza.
[2018-04-10] MEDS: ceFAZolin 2 GM in Premix Bag 1 BAG IV SCH (19:44)
[2018-04-10] MEDS ORDERED: Enoxaparin 40 MG/0.4 ML Syringe SUBCUT ONE (21:00)
[2018-04-10] MEDS: Calcium Carbonate 600 MG Tab PO SCH (21:04)
[2018-04-10] MEDS: Famotidine 20 MG Tab PO SCH (21:04)
[2018-04-10] MEDS: Docusate Sodium 100 MG Cap PO SCH (21:04)
[2018-04-10] MEDS: Acetaminophen/oxyCODONE 325-5 MG Tab PO PRN (21:05)
--- NOTE | 2018-04-10 21:53 | PCM.OPNOTE ---
- General Post-Op/Procedure Note Date of Surgery/Procedure: 04/10/18 Operative Procedure(s): left total knee arthroplasty with right knee corticosteroid injection Pre Op Diagnosis: bilateral knee osteoarthrosis Post-Op Diagnosis: Same Anesthesia Technique: Local, MAC, Spinal Primary Surgeon: Randy Bhatt Anesthesia Provider: Yue Cruz Rn Transfer: Rosette Bragg Rn Transfer: Liz Kelly EBL in mLs: 5 Complications: None Condition: Good Free Text/Narrative:: Intake & Output 04/10/18 04/10/18 04/10/18 06:59 14:59 22:59 Intake Total 300 Balance 300 size 5 femur cemented size 4 tibia cemented [id number] patella cemented 9mm poly
[2018-04-11] MEDS: ceFAZolin 2 GM in Premix Bag 1 BAG IV SCH ×2 (03:37→10:50)
--- NOTE | 2018-04-11 06:18 | PCM.SN ---
- Free Text/Narrative Note: Maritza Ramirez is a 73yo female who is postoperative day 1 from a left total knee arthroplasty and right cortisone injection. She is a patient of Dr. Bhatt's and hospitalist medicine was consulted for medical management. Medications and past medical history reviewed. From a hospitalist standpoint she is doing very well. She denies any chest pain, shortness of breath, palpitations, dizziness, blurred vision, abdominal pain, pain with urination. Physical exam is unremarkable with regular rate and rhythm and clear lung sounds throughout all hernandez. Abdomen is soft and nontender. Mucous membranes are moist. She is neurovascularly intact with good sensation and 2+ pulses in all extremities. Vital signs have been stable. She has a history of bradycardia and is asymptomatic currently. Labs were reviewed: preoperatively GFR was greater than 90 and postoperatively is greater than 60. Hemoglobin preoperatively was 13.7 and today it is 11.2. No concerns from patient or staff. She has been ambulating with PT/OT and doing well. She has urinated and is off of oxygen. She will be cleared from discharge pending primary team and PT/OT agreement.
[2018-04-11] MEDS: Acetaminophen/oxyCODONE 325-5 MG Tab PO PRN ×2 (07:31→11:44)
--- NOTE | 2018-04-11 08:17 | PCM.SURGPN ---
- General Info Date of Service: 04/11/18 POD#: 1 Functional Status: Reports: Pain Controlled, Tolerating Diet, Ambulating, Urinating, Incentive Spirometry, Other (The pt states she is doing very well and has minimal pain.) - Patient Data Vitals - Most Recent: Last Vital Signs Temp 97.4 F 04/11/18 04:00 Pulse 53 L 04/11/18 04:07 Resp 16 04/11/18 04:00 BP 90/44 L 04/11/18 04:07 Pulse Ox 100 04/11/18 04:07 Weight - Most Recent: 161 lb 2.526 oz I&O - Last 24 Hours: Intake & Output 04/10/18 04/11/18 04/11/18 22:59 06:59 14:59 Output Total 900 1200 Balance -900 -1200 Lab Results Last 24 Hrs: Laboratory Results - last 24 hr 04/10/18 04/11/18 04/11/18 Range/Units 09:05 06:40 06:40 WBC 7.95 (3.98-10.04) K/mm3 RBC 3.63 L (3.98-5.22) M/mm3 Hgb 11.2 (11.2-15.7) gm/L Hct 35.4 (34.1-44.9) % MCV 97.5 H (79.4-94.8) fl MCH 30.9 (25.6-32.2) pg MCHC 31.6 L (32.2-35.5) g/dl RDW Std Deviation 45.4 (36.4-46.3) fL Plt Count 209 (182-369) K/mm3 MPV 9.5 (9.4-12.3) fl PT 11.2 (9.5-12.1) SECONDS INR 1.03 Sodium 138 (136-145) mEq/L Potassium 4.2 (3.5-5.1) mEq/L Chloride 105 (98-107) mEq/L Carbon Dioxide 28 (21-32) mEq/L Anion Gap 9.2 (5-15) BUN 12 (7-18) mg/dL Creatinine 0.7 (0.55-1.02) mg/dL Est Cr Clr Drug Dosing 74.80 mL/min Estimated GFR (MDRD) > 60 (>60) mL/min BUN/Creatinine Ratio 17.1 (14-18) Glucose 125 H (83-115) mg/dL Calcium 8.7 (8.5-10.1) mg/dL Total Bilirubin 0.3 (0.2-1.0) mg/dL AST 28 (15-37) U/L ALT 34 (14-59) U/L Alkaline Phosphatase 52 (46-116) U/L Total Protein 6.1 L (6.4-8.2) g/dl Albumin 2.9 L (3.4-5.0) g/dl Globulin 3.2 gm/dL Albumin/Globulin Ratio 0.9 L (1-2) Med Orders - Current: Current Medications Bisacodyl (Dulcolax) 5 mg PO DAILY PRN PRN Reason: Constipation Calcium Carbonate/Glycine (Calcium Carbonate) 600 mg PO BID [facility] Last Admin: 04/10/18 21:04 Dose: 600 mg Cholecalciferol (Vitamin D3) 5,000 unit PO DAILY [facility] Cyclobenzaprine HCl (Flexeril) 10 mg PO TID PRN PRN Reason: Spasms Docusate Sodium (Colace) 100 mg PO BID [facility] Last Admin: 04/10/18 21:04 Dose: 100 mg Famotidine (Pepcid) 20 mg PO Q12H [facility] Last Admin: 04/10/18 21:04 Dose: 20 mg Cefazolin Sodium/Dextrose 2 gm (/ Premix) 50 mls @ 100 mls/hr IV Q8H [facility] Stop: 04/11/18 11:14 Last Admin: 04/11/18 03:37 Dose: 100 mls/hr Ketorolac Tromethamine (Toradol) 15 mg IVPUSH Q6H PRN PRN Reason: Pain Last Admin: 04/10/18 21:04 Dose: 15 mg Magnesium Hydroxide (Milk Of Magnesia) 30 ml PO BID PRN PRN Reason: Constipation Morphine Sulfate (Morphine) 2 mg IVPUSH Q2H PRN PRN Reason: Breakthrough Pain Multivitamins (Thera) 1 each PO DAILY [facility] Naloxone HCl (Narcan) 0.1 mg IVPUSH Q5M PRN PRN Reason: Oversedation Ondansetron HCl (Zofran) 4 mg IVPUSH Q6H PRN PRN Reason: Nausea/Vomiting Oxycodone/Acetaminophen (Percocet 325-5 Mg) 1 - 2 tab PO Q4H PRN PRN Reason: Pain Last Admin: 04/11/18 07:31 Dose: 1 tab Rivaroxaban (Xarelto) 20 mg PO DAILY [facility] Senna (Senna) 8.6 mg PO BID PRN PRN Reason: Constipation Discontinued Medications Acetaminophen (Tylenol) 975 mg PO ONETIME [facility] Stop: 04/10/18 14:00 Last Admin: 04/10/18 10:15 Dose: 975 mg Bupivacaine HCl (Sensorcaine-Mpf 0.25%) Confirm Administered Dose 10 ml .ROUTE .STK-MED ONE Stop: 04/10/18 10:46 Last Admin: 04/10/18 13:49 Dose: 4 ml Bupivacaine HCl (Marcaine 0.25%) Confirm Administered Dose 30 ml .ROUTE .STK- MED ONE Stop: 04/10/18 10:46 Last Admin: 04/10/18 13:23 Dose: 30 ml Cefazolin Sodium (Ancef) Confirm Administered Dose 2 gm .ROUTE .STK-MED ONE Stop: 04/10/18 09:48 Cefazolin Sodium (Ancef) Confirm Administered Dose 2 gm .ROUTE .STK-MED ONE Stop: 04/10/18 10:45 Last Admin: 04/10/18 13:19 Dose: 2 gm Morphine Sulfate 8 mg/Epinephrine HCl 0.3 mg/Cefuroxime Sodium 750 mg/Ketorolac Tromethamine 30 mg/Sodium Chloride 27.9 ml 0 mg .XX ONETIME ONE Stop: 04/10/18 06:57 Last Admin: 04/10/18 15:51 Dose: Not Given Dexamethasone (Dexamethasone) Confirm Administered Dose 4 mg .ROUTE .STK-MED ONE Stop: 04/10/18 09:48 Dexamethasone (Dexamethasone) Confirm Administered Dose 4 mg .ROUTE .STK-MED ONE Stop: 04/10/18 09:49 Enoxaparin Sodium (Lovenox) 40 mg SUBCUT ONETIME ONE Stop: 04/10/18 21:01 Last Admin: 04/10/18 21:06 Dose: 40 mg Ephedrine Sulfate (Ephedrine In Ns) Confirm Administered Dose 25 mg .ROUTE .STK- MED ONE Stop: 04/10/18 12:32 Epinephrine HCl (Adrenalin) Confirm Administered Dose 1 mg .ROUTE .STK-MED ONE Stop: 04/10/18 09:19 Fentanyl (Sublimaze) Confirm Administered Dose 100 mcg .ROUTE .STK-MED ONE Stop: 04/10/18 09:49 Fentanyl (Sublimaze) 50 mcg IVPUSH Q5M PRN PRN Reason: pain Stop: 04/10/18 23:00 Last Admin: 04/10/18 14:35 Dose: 50 mcg Hydromorphone HCl (Dilaudid) 0.5 mg IVPUSH Q15M PRN PRN Reason: severe pain Lactated Ringer's (Ringers, Lactated) 1,000 mls @ 125 mls/hr IV ASDIRECTED TIAN Stop: 04/10/18 23:00 Last Admin: 04/10/18 09:30 Dose: 125 mls/hr Lactated Ringer's (Ringers, Lactated) Confirm Administered Dose 1,000 mls @ as directed .ROUTE .ST-MED ONE Stop: 04/10/18 09:48 Lidocaine HCl (Xylocaine-Mpf 1%) Confirm Administered Dose 4 mls @ as directed .ROUTE .ST-MED ONE Stop: 04/10/18 09:49 Lactated Ringer's (Ringers, Lactated) Confirm Administered Dose 1,000 mls @ as directed .ROUTE .STK-MED ONE Stop: 04/10/18 13:48 Iodine (Iodine 2% Mild Tincture) Confirm Administered Dose 30 ml .ROUTE .STK- MED ONE Stop: 04/10/18 10:46 Last Admin: 04/10/18 13:17 Dose: 18 ml Ketorolac Tromethamine (Toradol) Confirm Administered Dose 30 mg .ROUTE .ST- MED ONE Stop: 04/10/18 09:48 Lidocaine/Sodium Bicarbonate (Buffered Lidocaine 1% In Ns 8.4%) 0.25 ml IDERM ONETIME PRN PRN Reason: Prior to IV Start Stop: 04/10/18 18:00 Last Admin: 04/10/18 09:30 Dose: 0.25 ml Midazolam HCl (Versed 1 Mg/Ml) Confirm Administered Dose 2 mg .ROUTE .STK-MED ONE Stop: 04/10/18 09:49 Ondansetron HCl (Zofran) Confirm Administered Dose 4 mg .ROUTE .STK-MED ONE Stop: 04/10/18 09:48 Oxycodone HCl (Oxycontin) 10 mg PO ONETIME [facility] Stop: 04/10/18 14:00 Last Admin: 04/10/18 10:14 Dose: 10 mg Phenylephrine HCl (Phenylephrine In Ns 100 Mcg/Ml) Confirm Administered Dose 1 mg .ROUTE .STK-MED ONE Stop: 04/10/18 12:55 Pregabalin (Lyrica) 50 mg PO ONETIME [facility] Stop: 04/10/18 14:00 Last Admin: 04/10/18 10:14 Dose: 50 mg Propofol (Diprivan 20 Ml) Confirm Administered Dose 200 mg .ROUTE .STK-MED ONE Stop: 04/10/18 09:47 Propofol (Diprivan 20 Ml) Confirm Administered Dose 400 mg .ROUTE .STK-MED ONE Stop: 04/10/18 09:48 Ropivacaine (Naropin 0.5%) Confirm Administered Dose 30 ml .ROUTE .STK-MED ONE Stop: 04/10/18 09:19 Sodium Chloride (Saline Flush) 10 ml FLUSH ASDIRECTED PRN PRN Reason: Keep Vein Open Stop: 04/10/18 18:00 Tranexamic Acid (Cyklokapron) Confirm Administered Dose 1,000 mg .ROUTE .STK- MED ONE Stop: 04/10/18 10:45 Last Admin: 04/10/18 13:29 Dose: 1,000 mg Triamcinolone Acetonide (Kenalog-40) Confirm Administered Dose 80 mg .ROUTE .STK -MED ONE Stop: 04/10/18 10:45 Last Admin: 04/10/18 13:49 Dose: 80 mg Vancomycin HCl (Vancomycin) Confirm Administered Dose 1 gm .ROUTE .STK-MED ONE Stop: 04/10/18 10:45 Last Admin: 04/10/18 13:26 Dose: 1 gm - Exam Wound/Incisions: Dressing Dry and Intact General: Alert, Cooperative, No Acute Distress Lungs: Normal Respiratory Effort Extremities: Other (NVS intact for BLE. Gauri's negative.) - Problem List Review Problem List Initiated/Reviewed/Updated: Yes - My Orders Last 24 Hours: Active Orders 24 hr Category Date Time Status Communication Order [RC] ROUTINE Care 04/10/18 14:02 Active Cooling Warming Measures [RC] ASDIRECTED Care 04/10/18 14:02 Inactive Notify Provider [RC] ASDIRECTED Care 04/10/18 14:02 Active Pulse Oximetry [RC] ASDIRECTED Care 04/10/18 14:02 Active Ready for Discharge [RC] PER UNIT ROUTINE Care 04/11/18 08:10 Active Regular Diet [DIET] Diet 04/10/18 Lunch Active Calcium Carbonate Med 04/10/18 21:00 Active 600 mg PO BID Cholecalciferol (Vitamin D3) [Vitamin D3] Med 04/11/18 09:00 Active 5,000 unit PO DAILY Docusate Sodium [Colace] Med 04/10/18 21:00 Active 100 mg PO BID Famotidine [Pepcid] Med 04/10/18 21:00 Active 20 mg PO Q12H Ketorolac [Toradol] Med 04/10/18 13:00 Active 15 mg IVPUSH Q6H PRN Multivitamins,Therapeutic [Thera] Med 04/11/18 09:00 Active 1 each PO DAILY Rivaroxaban [Xarelto] Med 04/11/18 09:00 Active 20 mg PO DAILY ceFAZolin [Ancef] 2 gm Med 04/10/18 18:45 Active Premix Bag 1 bag IV Q8H Medication Orders Bisacodyl (Dulcolax) 5 mg PO DAILY PRN PRN Reason: Constipation Calcium Carbonate/Glycine (Calcium Carbonate) 600 mg PO BID [facility] Last Admin: 04/10/18 21:04 Dose: 600 mg Cholecalciferol (Vitamin D3) 5,000 unit PO DAILY [facility] Cyclobenzaprine HCl (Flexeril) 10 mg PO TID PRN PRN Reason: Spasms Docusate Sodium (Colace) 100 mg PO BID [facility] Last Admin: 04/10/18 21:04 Dose: 100 mg Famotidine (Pepcid) 20 mg PO Q12H [facility] Last Admin: 04/10/18 21:04 Dose: 20 mg Cefazolin Sodium/Dextrose 2 gm (/ Premix) 50 mls @ 100 mls/hr IV Q8H [facility] Stop: 04/11/18 11:14 Last Admin: 04/11/18 03:37 Dose: 100 mls/hr Infusion: 04/10/18 20:14 Dose: 100 mls/hr Admin: 04/10/18 19:44 Dose: 100 mls/hr Ketorolac Tromethamine (Toradol) 15 mg IVPUSH Q6H PRN PRN Reason: Pain Last Admin: 04/10/18 21:04 Dose: 15 mg Magnesium Hydroxide (Milk Of Magnesia) 30 ml PO BID PRN PRN Reason: Constipation Morphine Sulfate (Morphine) 2 mg IVPUSH Q2H PRN PRN Reason: Breakthrough Pain Multivitamins (Thera) 1 each PO DAILY [facility] Naloxone HCl (Narcan) 0.1 mg IVPUSH Q5M PRN PRN Reason: Oversedation Ondansetron HCl (Zofran) 4 mg IVPUSH Q6H PRN PRN Reason: Nausea/Vomiting Oxycodone/Acetaminophen (Percocet 325-5 Mg) 1 - 2 tab PO Q4H PRN PRN Reason: Pain Last Admin: 04/11/18 07:31 Dose: 1 tab Admin: 04/10/18 21:05 Dose: 1 tab Rivaroxaban (Xarelto) 20 mg PO DAILY [facility] Senna (Senna) 8.6 mg PO BID PRN PRN Reason: Constipation - Assessment Assessment (Free Text/Narrative):: POD#1 - left TKA with right knee cortisone injection - Plan Plan (Free Text/Narrative):: 1. Discharge to home today. 2. Outpatient therapy. 3. Pt was given a dose of Lovenox last night and will resume use of Xarelto 20mg PO daily today. The pt's case was discussed with Dr. Bhatt.
[2018-04-11] MEDS: Calcium Carbonate 600 MG Tab PO SCH (08:36)
[2018-04-11] MEDS: Famotidine 20 MG Tab PO SCH (08:36)
[2018-04-11] MEDS: Docusate Sodium 100 MG Cap PO SCH (08:36)
[2018-04-11] MEDS ORDERED: Cholecalciferol (Vitamin D3) 5,000 UNIT Tab PO SCH (09:00)
[2018-04-11] MEDS ORDERED: Multivitamins,Therapeutic Tab PO SCH (09:00)
[2018-04-11] MEDS ORDERED: Rivaroxaban 10 MG Tab PO SCH (09:00)
[2018-04-11 14:43] VITALS: BP 92/58
--- NOTE | 2018-04-14 11:12 | OR ---
DATE OF OPERATION: 04/10/2018 SURGEON: Randy Bhatt MD OPERATION PERFORMED: Left total knee arthroplasty with right knee corticosteroid injection. PREOPERATIVE DIAGNOSIS: Bilateral knee osteoarthrosis. POSTOPERATIVE DIAGNOSIS: Bilateral knee osteoarthrosis. ANESTHESIA: Local MAC with spinal. ANESTHESIA PROVIDER: Yue Cruz. ASSISTANTS: Rosette Bragg PA-C and Liz Kelly LPN. ESTIMATED BLOOD LOSS: 5 mL. COMPLICATIONS: None. CONDITION: Stable. IMPLANTS: 1. Alex size 5 cemented PS femur. 2. Aztec size 4 cemented universal tibial base plate. 3. Alex size 4, 9 mm PS X3 polyethylene. 4. Aztec size 32 x 10 mm asymmetric cemented patella. DESCRIPTION OF PROCEDURE: The patient was identified in the preop holding area. Proper site was marked and identified by the surgeon. The patient was taken back to the operating theater. After adequate anesthesia, the patient's left lower extremity had a nonsterile tourniquet applied and it was sterilely prepped and draped in the usual sterile fashion. OR time-out was performed. The patient received 2 g IV Ancef. At this time, the left lower extremity was exsanguinated. Tourniquet was insufflated to 300 mmHg. Standard medial parapatellar incision was made. Medial parapatellar arthrotomy was created. Deep fibers of the MCL were raised and anterior fat pad was resected. At this time, attention was turned to the patella. Patella measured a 24 and was resected to a 14 for 32 x 10 mm patella. Drill holes were then drilled and found to be in adequate position. The drill was then drilled in the distal femur and the intramedullary distal femoral cutting guide was then placed. 10 mm was resected off the distal femur and was found to be an adequate resection. Sizing guide was placed. It was found to be a size 5 cemented PS femur that was shown on the implant record at the beginning of this dictation. The drill holes were drilled for the epicondylar axis using Whitesides line and epicondyles as reference. At this time, the 4-in-1 cutting block was placed. An anterior posterior and anterior and posterior chamfer cuts were then completed. Box cut was then completed at this time, Attention was turned to the tibia. The posterior medial lateral retractors were placed. The extramedullary tibial guide was placed. It was placed in the old footprint of the ACL. It was aligned with the center of the ankle and 0 degrees of slope, 9 mm was then resected off the unaffected side. There was found to be an acceptable reduction. At this time, posterior osteophytes were removed along with medial and lateral meniscus. A trial implant was placed with a correct sized tibia that was mentioned at the beginning of the dictation. A Aztec size 4, 9 mm PS X3 polyethylene insert was then placed. The patient's knee was brought through range of motion. The patella was tracking centrally and was stable to varus and valgus stress. Alignment was found to be roughly at 0 degrees. The tibia was stamped and drilled in proper rotation. The universal tibial base plate was cemented in place. Next, the Aztec size 5 cemented PS femur impacted into place and the Alex size 4, 9 mm PS X3 polyethylene insert was placed. The patient's knee was brought into full extension. The patella was then cemented in place at this time. Excess cement was removed. One liter dilute Betadine solution was irrigated through the knee along with 3 L of pulse lavage irrigation with Ancef. Periarticular injection was then completed. The patient's knee was brought through a range of motion. Once the cement had time to set up and it was found to be stable to varus valgus stress, the patella was tracking centrally with full range of motion. At this time, a #2 barbed suture was used for closure of the medial parapatellar arthrotomy. Topical tranexamic acid was placed. 2-0 Vicryl was used subcutaneously, Prineo was used for the skin. Under sterile technique, after this procedure has been completed, 2 mL of 40 mg Kenalog and 4 mL of 0.25% Marcaine were injected into the right knee. The patient tolerated both procedures well. KRISTOFER /[id number] TATIANA
== END 2018-04-11 14:30 | disposition home or self-care (01) ==
LOC: JD.SDS 08:19 → JD.OB 08:25 → JD.SDS 04-11 14:30
PROVIDERS: ATTEND Orthopaedic Surgery
DX: M17.0 Bilateral primary osteoarthritis of knee (principal); M25.762 Osteophyte, left knee; E78.5 Hyperlipidemia, unspecified; Z87.891 Personal history of nicotine dependence; Z86.711 Personal history of pulmonary embolism; Z79.01 Long term (current) use of anticoagulants; Z79.899 Other long term (current) drug therapy
CPT/HCPCS: 20610; 27447; 36415; 73560; 80053; 85027; 85610; 87641; 97110; 97116; 97161; 97165; 97535; A9270; C1713; C1776; J0171; J0690; J0697; J1100; J1650; J1885; J2250; J2270; J2370; J2405; J2704; J2795; J3010; J3301; J3370; J3490; J7050; J7120; 01402; 64450; J2001

== ENCOUNTER → 2018-05-29 | Day surgery (SDC) | payer MEDICARE, OTHER ==
[~2018-05-29] MED LIST changes: -Acetaminophen 325 MG Tab PO SCH; -Bisacodyl 5 MG Tab PO PRN; -Cyclobenzaprine 10 MG Tab PO PRN; +HYDROmorphone 0.5 MG/0.5 ML Syringe IVPUSH PRN; +HYDROmorphone 0.5 MG/0.5 ML Syringe ONE; +Ketamine 500 mg/10 ML MDV ONE; +Ketorolac 30 MG/ML SDV ONE; +Lidocaine 1% PF 2 ML SDV ONE; -Magnesium Hydroxide 400 MG/5 ML Susp 30 ML Cup PO PRN; +Midazolam 1 MG/ML 2 ML SDV ONE; -Morphine 2 MG/ML Syringe IVPUSH PRN; -Naloxone 0.4 MG/ML SDV IVPUSH PRN; -Pregabalin 25 MG Cap PO SCH; +Propofol 200 MG/20 ML SDV ONE; -Sennosides 8.6 MG Tab PO PRN; +fentaNYL 100 MCG/2 ML SDV IVPUSH PRN; +fentaNYL 100 MCG/2 ML SDV ONE; -oxyCODONE ER 10 MG TAB.ER PO SCH
--- NOTE | 2018-05-29 06:45 | PCM.PREANE ---
Preanesthetic Assessment - Procedure Proposed Procedure: left knee manipulation under anesthesia - Anesthesia/Transfusion/Family Hx Anesthesia History: Prior Anesthesia Without Reaction Family History of Anesthesia Reaction: No Transfusion History: No Prior Transfusion(s) - Review of Systems General: No Symptoms Pulmonary: No Symptoms Cardiovascular: No Symptoms Gastrointestinal: No Symptoms Neurological: No Symptoms Other: Reports: Easy Bruising - Physical Assessment NPO Status Date: 05/28/18 NPO Status Time: 21:30 Pulse: 81 O2 Sat by Pulse Oximetry: 100 Respiratory Rate: 16 Blood Pressure: 121/72 Temperature: 97.8 F Height: 5 ft 9 in Weight: 69.581 kg ASA Class: 2 Mental Status: Alert & Oriented x3 Airway Class: Mallampati = 1 Dentition: Reports: Normal Dentition Thyro-Mental Finger Breadths: 3 Mouth Opening Finger Breadths: 3 ROM/Head Extension: Full Lungs: Clear to Auscultation, Normal Respiratory Effort Cardiovascular: Regular Rate, Regular Rhythm - Lab Values: Laboratory Last Values MRSA (PCR) Negative 05/26/18 10:34 - Allergies Allergies/Adverse Reactions: Allergies Allergy/AdvReac Type Severity Reaction Status Date / Time rosuvastatin AdvReac Muscle Verified 05/28/18 10:26 Aches - Blood Blood Available: No - Acknowledgements Anesthesia Type Planned: MAC Pt an Appropriate Candidate for the Planned Anesthesia: Yes Alternatives and Risks of Anesthesia Discussed w Pt/Guardian: Yes Pt/Guardian Understands and Agrees with Anesthesia Plan: Yes PreAnesthesia Questionnaire HEENT History: Reports: Impaired Vision, Other (See Below) Other HEENT History: pt wears glasses Cardiovascular History: Reports: Blood Clots/VTE/DVT, High Cholesterol Other Cardiovascular History: leg venous ligation Respiratory History: Reports: PE Gastrointestinal History: Reports: Chronic Constipation Genitourinary History: Reports: None CUFF CUTTER History: Reports: Musculoskeletal History: Reports: Back Pain, Chronic, Osteoarthritis, Other ( See Below) Other Musculoskeletal History: shoulder impingement, tibilais tendinitis, lower limb mononeuritis, congeintal pev cavus of right heel Neurological History: Reports: None Psychiatric History: Reports: None Endocrine/Metabolic History: Reports: Osteopenia, Vitamin D Deficiency Hematologic History: Reports: None Immunologic History: Reports: None Oncologic (Cancer) History: Reports: None Dermatologic History: Reports: None - Infectious Disease History Infectious Disease History: Reports: Measles - Past Surgical History Head Surgeries/Procedures: Reports: None HEENT Surgical History: Reports: None Cardiovascular Surgical History: Reports: None, Varicose Respiratory Surgical History: Reports: None GI Surgical History: Reports: Appendectomy, Cholecystectomy, Colonoscopy, Lysis of Adhesions Other GI Surgeries/Procedures: adhesions Female Surgical History: Reports: Cystoscopy, Hysterectomy Male Surgical History: Reports: None Endocrine Surgical History: Reports: None Neurological Surgical History: Reports: None Musculoskeletal Surgical History: Reports: Knee Replacement, Shoulder Surgery Oncologic Surgical History: Reports: None Dermatological Surgical History: Reports: None - SUBSTANCE USE Smoking Status *Q: Former Smoker Tobacco Use Within Last Twelve Months: No Second Hand Smoke Exposure: No Days Per Week of Alcohol Use: 1 (rare) Recreational Drug Use History: No - HOME MEDS Home Medications: Home Meds Calcium Carbonate [Calcium] 600 mg PO BID 04/07/18 [History] Cholecalciferol (Vitamin D3) [Vitamin D3] 5,000 unit PO DAILY 04/07/18 [History] Multivitamin [Poly-Vitamin] 1 tab PO DAILY 04/07/18 [History] Rivaroxaban [Xarelto] 20 mg PO DAILY 04/07/18 [History] Acetaminophen/oxyCODONE [Percocet 325-5 MG] 1 - 2 tab PO Q6H PRN #60 tablet [Rx] Simvastatin 10 mg PO DAILY 05/26/18 [History] - CURRENT (IN HOUSE) MEDS Current Meds: Current Medications Lactated Ringer's (Ringers, Lactated) 1,000 mls @ 125 mls/hr IV ASDIRECTED [facility] Stop: 05/29/18 23:00 Lidocaine/Sodium Bicarbonate (Buffered Lidocaine 1% In Ns 8.4%) 0.25 ml IDERM ONETIME PRN PRN Reason: Prior to IV Start Stop: 05/29/18 23:00 Sodium Chloride (Saline Flush) 10 ml FLUSH ASDIRECTED PRN PRN Reason: Keep Vein Open Stop: 05/29/18 23:00
--- NOTE | 2018-05-29 07:38 | PCM.POSTAN ---
POST ANESTHESIA ASSESSMENT - MENTAL STATUS Mental Status: Alert, Somnolent - VITAL SIGNS Pulse Rate: 63 SaO2: 97 Resp Rate: 17 Blood Pressure: 122/56 Temperature: 97.6 F - RESPIRATORY Respiratory Status: Respiratory Rate WNL, Airway Patent, O2 Saturation Stable, Supplemental Oxygen - CARDIOVASCULAR CV Status: Pulse Rate WNL, Blood Pressure Stable - GASTROINTESTINAL GI Status: No Symptoms - PAIN Pain Score: 5 (complains of pain) - POST OP HYDRATION Hydration Status: Adequate & Stable
--- NOTE | 2018-05-29 08:14 | CR ---
Left knee: Lateral view of the left knee was obtained utilizing C-arm device. Knee prosthesis is seen. Study was obtained during the knee manipulation. Fluoroscopy time given is 4.6 seconds. Impression: 1. Procedural study as noted above. Diagnostic code #2
--- NOTE | 2018-05-29 09:51 | PCM48HPAN ---
Post Anesthesia Note - EVALUATION WITHIN 48HRS OF ANESTHETIC Vital Signs in Normal Range: Yes Patient Participated in Evaluation: Yes Respiratory Function Stable: Yes Airway Patent: Yes Cardiovascular Function Stable: Yes Hydration Status Stable: Yes Pain Control Satisfactory: Yes Nausea and Vomiting Control Satisfactory: Yes Mental Status Recovered: Yes (DIZZY EARLIER-) Pulse Rate: 63 Resp Rate: 18 Temperature: 97.6 F Blood Pressure: 122/56
[2018-05-29 09:52] VITALS: BP 122/56
--- NOTE | 2018-05-30 17:03 | PCM.OPNOTE ---
- General Post-Op/Procedure Note Date of Surgery/Procedure: 05/29/18 Operative Procedure(s): left total knee arthroplasty manipulation under anesthesia Pre Op Diagnosis: left total knee arthrofibrosis Post-Op Diagnosis: Same Anesthesia Technique: MAC Primary Surgeon: Randy Bhatt Anesthesia Provider: Aracely MTZ in mLs: 0 Complications: None Condition: Good
--- NOTE | 2018-05-30 17:27 | OR ---
DATE OF OPERATION: 05/29/2018 SURGEON: Randy Bhatt MD OPERATION PERFORMED: Left total knee arthroplasty manipulation under anesthesia. PREOPERATIVE DIAGNOSIS: Left total knee arthrofibrosis. POSTOPERATIVE DIAGNOSIS: Left total knee arthrofibrosis. ANESTHESIA: MAC. ANESTHESIA PROVIDER: Aracely Hernandez CRNA. ESTIMATED BLOOD LOSS: Not applicable. COMPLICATIONS: None. CONDITION: Stable. DESCRIPTION OF PROCEDURE: The patient was identified in the preop holding area. Proper site was marked and identified by the surgeon. The patient was taken back to the operating theater, where after adequate anesthesia, the patient's left lower extremity had pre-manipulation motion measured that was 2 to roughly 85 degrees. At this time, I did have a hard endpoint. After manipulation and over pressure, I was able to get this patient to 0-135 degrees. It was stable throughout range of motion and otherwise showed no signs of instability. The patient at this time, was sent to PACU in stable condition, will begin therapy tomorrow. MMODAL /[id number]
== END | disposition home or self-care (01) ==
LOC: JD.SDS 06:14
PROVIDERS: ATTEND Orthopaedic Surgery
DX: M24.662 Ankylosis, left knee (principal); M85.89 Other specified disorders of bone density and structure, multiple sites; M19.071 Primary osteoarthritis, right ankle and foot; E78.00 Pure hypercholesterolemia, unspecified; E55.9 Vitamin D deficiency, unspecified; Z88.8 Allergy status to other drugs, medicaments and biological substances; Z96.652 Presence of left artificial knee joint; Z86.711 Personal history of pulmonary embolism; Z87.891 Personal history of nicotine dependence; Z79.01 Long term (current) use of anticoagulants; Z79.899 Other long term (current) drug therapy
CPT/HCPCS: 27570; 76000; 87641; J1170; J1885; J2001; J2250; J2704; J3010; J7120; 01380

== ENCOUNTER 2018-06-04 02:52 | Emergency (ER) | payer MEDICARE, OTHER ==
[2018-06-04 03:07] VITALS: BP 140/82
[2018-06-04] MEDS ORDERED: LORazepam 2 MG/ML SDV IVPUSH ONE (03:17)
[2018-06-04] MEDS ORDERED: Promethazine 25 MG in Sodium Chloride 0.9% 50 ML IV ONE (03:18)
--- NOTE | 2018-06-04 03:19 | EDM.PDOC ---
ED HPI GENERAL MEDICAL PROBLEM - General Chief Complaint: General Stated Complaint: HOT & COLD/JUST FEELS ILL Time Seen by Provider: 06/04/18 03:05 Source of Information: Reports: Patient History Limitations: Reports: No Limitations - History of Present Illness INITIAL COMMENTS - FREE TEXT/NARRATIVE: 73-year-old female presents to the ED quite distraught and anxious. Does like she's going to crawl out of her skin. A shunt has had chronic pain in her left knee since total knee replacement April 10. She is having so much pain in the knee that she was not able to move it normally and physiotherapy was having no locking getting her mobility back. She underwent general anesthetic and manipulation of the left knee to prevent frozen knee postoperatively last week. Patient has been taking oxycodone tablets usually 6-8 per day since the time of surgery. Yesterday she should to yesterday morning before [facility] and to about 1:30. She took one last night about 9:30 before bed. She reports she's having terrible time sleeping and sleep is severely disrupted. She was awake by 11:00 having quite significant pain in her left knee and feeling extremely anxious. Almost like she was going through withdrawal symptoms. She is still taking Xarelto on a daily basis to prevent DVT. She's also on Norflex 100 mg 3 times daily for muscle spasms. Taking both of these medications as directed. I am reveals no fever although she feels hot and cold. Heart is sinus no murmurs identified her left knee is quite warm to palpation but the wound is well-healed with no active signs of infection. Plan IV D5 normal saline at 250 mils per hour. We'll give her 1 mg of Ativan and Phenergan 25 mg IV for nausea relief. Routine labs performed. I believe part of her problem is actually significant anxiety from chronic disrupted sleep pattern for the last 2 months. Onset: Sudden Onset Date: 06/03/18 Onset Time: 23:00 (Around 2300 hrs. and felt quite ill. Some nausea hot cold flushed feeling signs and symptoms of drug withdrawal.) Duration: Hour(s): Location: Reports: Generalized (Sense of illness with hot cold flushed sensations and not associated mild nausea.) Quality: Reports: Other (Hot cold flushed) Severity: Moderate Improves with: Reports: None (Moderate to severe) Worsens with: Reports: None Context: Denies: Activity, Exercise, Lifting, Sick Contact, Trauma, Other Associated Symptoms: Reports: Malaise, Nausea/Vomiting (Markedly disrupted sleep pattern nausea without vomiting), Other. 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) (Last dose of oxycodone was at 9:30 last night 1 tablet 07/21/24 milligrams strength) Left Knee Pain Score (Numeric/FACES): 2 - Related Data Allergies Allergy/AdvReac Type Severity Reaction Status Date / Time rosuvastatin AdvReac Muscle Verified 06/04/18 03:07 Aches Home Meds: Home Meds Rivaroxaban [Xarelto] 20 mg PO DAILY 04/07/18 [History] Orphenadrine [Norflex] 100 mg PO BID 05/29/18 [History] Acetaminophen/oxyCODONE [Percocet 325-5 MG] 1 - 2 tab PO TID PRN 06/04/18 [ History] ClonazePAM [KlonoPIN] 2 mg PO BEDTIME #30 tab 06/04/18 [Rx] Past Medical History HEENT History: Reports: Impaired Vision, Other (See Below) Other HEENT History: pt wears glasses Cardiovascular History: Reports: Blood Clots/VTE/DVT, High Cholesterol Other Cardiovascular History: leg venous ligation Respiratory History: Reports: PE Gastrointestinal History: Reports: Chronic Constipation Genitourinary History: Reports: None 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: Musculoskeletal History: Reports: Back Pain, Chronic, Osteoarthritis, Other ( See Below) Other Musculoskeletal History: shoulder impingement, tibilais tendinitis, lower limb mononeuritis, congeintal pev cavus of right heel Neurological History: Reports: None Psychiatric History: Reports: None Endocrine/Metabolic History: Reports: Osteopenia, Vitamin D Deficiency Hematologic History: Reports: None Immunologic History: Reports: None Oncologic (Cancer) History: Reports: None Dermatologic History: Reports: None - Infectious Disease History Infectious Disease History: Reports: Measles - Past Surgical History Head Surgeries/Procedures: Reports: None HEENT Surgical History: Reports: None Cardiovascular Surgical History: Reports: None, Varicose Respiratory Surgical History: Reports: None GI Surgical History: Reports: Appendectomy, Cholecystectomy, Colonoscopy, Lysis of Adhesions Other GI Surgeries/Procedures: adhesions Female Surgical History: Reports: Cystoscopy, Hysterectomy Endocrine Surgical History: Reports: None Neurological Surgical History: Reports: None Musculoskeletal Surgical History: Reports: Knee Replacement, Shoulder Surgery Oncologic Surgical History: Reports: None Dermatological Surgical History: Reports: None Social & Family History - Family History Family Medical History: Noncontributory - Tobacco Use Smoking Status *Q: Never Smoker - Caffeine Use Caffeine Use: Reports: Coffee Other Caffeine Use: a cup of coffee every day - Recreational Drug Use Recreational Drug Use: No - Living Situation & Occupation Living situation: Reports: , with Spouse Occupation: Retired ED ROS GENERAL - Review of Systems Review Of Systems: See Below Constitutional: Reports: Chills, Malaise, Weakness, Fatigue, Weight Loss (20 pound weight loss since surgery performed April 10 is lost her appetite.) HEENT: Reports: Glasses Respiratory: Reports: Shortness of Breath. Denies: Wheezing, Pleuritic Chest Pain, Cough, Sputum, Hemoptysis Cardiovascular: Reports: Lightheadedness. Denies: Chest Pain, Blood Pressure Problem, Claudication, Dyspnea on Exertion, Edema (At times), Orthopnea Endocrine: Reports: Fatigue GI/Abdominal: Reports: Constipation (Mild constipation but takes stool softeners daily to keep her bowels regular), Nausea (ntermittent nausea without vomiting) : Reports: Frequency Musculoskeletal: Reports: Neck Pain, Joint Pain (Chronic pain left knee.) Skin: Reports: No Symptoms Neurological: Reports: Dizziness. Denies: No Symptoms, Other Psychiatric: Reports: Agitation, Anxiety. Denies: Depression, Hallucinations ( Moderately agitated), Homicidal Ideation, Mood Lability, Suicidal Ideation Hematologic/Lymphatic: Reports: No Symptoms Immunologic: Reports: No Symptoms ED EXAM, GENERAL - Physical Exam Exam: See Below Exam Limited By: No Limitations General Appearance: Alert, WD/WN, Moderate Distress (Very anxious and distraught at the time of exam.) Eye Exam: Bilateral Eye: Normal Inspection Throat/Mouth: Normal Inspection, Normal Lips, Normal Oropharynx, Perioral Cyanosis Head: Atraumatic Neck: Normal Inspection, Supple, Non-Tender, Full Range of Motion. No: Lymphadenopathy (L), Lymphadenopathy (R) Respiratory/Chest: No Respiratory Distress, Lungs Clear, Normal Breath Sounds, No Accessory Muscle Use Cardiovascular: Regular Rate, Rhythm, No Edema, No Gallop, No Rub Peripheral Pulses: 2+: Posterior Tibial (L), Posterior Tibial (R), Dorsalis Pedis (L), Dorsalis Pedis (R) GI/Abdominal: Normal Bowel Sounds, Soft, Non-Tender, No Organomegaly, No Abnormal Bruit, No Mass, Pelvis Stable Back Exam: Normal Inspection, Full Range of Motion. No: CVA Tenderness (L), CVA Tenderness (R) Extremities: Other (Well-healed scar over her left anterior knee. The knee remains slightly swollen and warm to palpation.) Neurological: Alert ( This is knee she had total knee replacement on April 10. ), Oriented, CN II-XII Intact, Normal Cognition. No: Normal Gait Psychiatric: Anxious Skin Exam: Warm, Dry, Intact, Normal Color, No Rash, Other (Afebrile) Course - Vital Signs Last Recorded V/S: Last Vital Signs Temp 36.1 C 06/04/18 03:00 Pulse 77 06/04/18 03:00 Resp 18 06/04/18 03:00 BP 140/82 06/04/18 03:00 Pulse Ox 100 06/04/18 03:00 - Orders/Labs/Meds Orders: Active Orders 24 hr Category Date Time Status URINALYSIS W/MICROSCOPIC [UA W/MICROSCOPIC] [URIN] Stat Lab 06/04/18 03:18 Ordered Dextrose 5%-0.9% NaCl [Dextrose 5%-Normal Saline] 1,000 Med 06/04/18 03:30 Active ml IV ASDIRECTED Medication Orders Dextrose/Sodium Chloride (Dextrose 5%-Normal Saline) 1,000 mls @ 250 mls/hr IV ASDIRECTED TIAN Last Admin: 06/04/18 03:38 Dose: 250 mls/hr Labs: Laboratory Tests 06/04/18 06/04/18 Range/Units 03:35 03:35 WBC 4.93 (3.98-10.04) K/mm3 RBC 4.20 (3.98-5.22) M/mm3 Hgb 12.9 (11.2-15.7) gm/L Hct 38.9 (34.1-44.9) % MCV 92.6 (79.4-94.8) fl MCH 30.7 (25.6-32.2) pg MCHC 33.2 (32.2-35.5) g/dl RDW Std Deviation 42.3 (36.4-46.3) fL Plt Count 294 (182-369) K/mm3 MPV 8.9 L (9.4-12.3) fl Neutrophils % (Manual) 60 (40-60) % Band Neutrophils % 0 (0-10) % Lymphocytes % (Manual) 28 (20-40) % Atypical Lymphs % 0 % Monocytes % (Manual) 10 (2-10) % Eosinophils % (Manual) 1 (0.7-5.8) % Basophils % (Manual) 1 (0.1-1.2) Platelet Estimate Adequate RBC Morph Comment Normal Sodium 137 (136-145) mEq/L Potassium 3.5 (3.5-5.1) mEq/L Chloride 103 (98-107) mEq/L Carbon Dioxide 24 (21-32) mEq/L Anion Gap 13.5 (5-15) BUN 9 (7-18) mg/dL Creatinine 0.9 (0.55-1.02) mg/dL Est Cr Clr Drug Dosing 57.80 mL/min Estimated GFR (MDRD) > 60 (>60) mL/min BUN/Creatinine Ratio 10.0 L (14-18) Glucose 97 (83-115) mg/dL Calcium 8.9 (8.5-10.1) mg/dL Total Bilirubin 0.4 (0.2-1.0) mg/dL AST 17 (15-37) U/L ALT 28 (14-59) U/L Alkaline Phosphatase 91 (46-116) U/L C-Reactive Protein 0.8 (<1.0) mg/dL Total Protein 7.2 (6.4-8.2) g/dl Albumin 3.5 (3.4-5.0) g/dl Globulin 3.7 gm/dL Albumin/Globulin Ratio 1.0 (1-2) Meds: Medications Generic Name Dose Route Start Last Admin Trade Name Freq PRN Reason Stop Dose Admin Dextrose/Sodium Chloride 1,000 mls @ 250 mls/hr 06/04/18 03:30 06/04/18 03:38 Dextrose 5%-Normal Saline IV 250 mls/hr ASDIRECTED TIAN Administration Discontinued Medications Generic Name Dose Route Start Last Admin Trade Name Freq PRN Reason Stop Dose Admin Hydromorphone HCl 0.5 mg 06/04/18 04:39 06/04/18 04:45 Dilaudid IVPUSH 06/04/18 04:40 0.5 mg ONETIME ONE Administration Promethazine HCl 25 mg/ Sodium 51 mls @ 100 mls/hr 06/04/18 03:18 06/04/18 03 :45 Chloride IV 06/04/18 03:48 100 mls/hr ONETIME ONE Administration Lorazepam 1 mg 06/04/18 03:17 06/04/18 03:40 Ativan IVPUSH 06/04/18 03:18 1 mg ONETIME ONE Administration Orphenadrine Citrate 100 mg 06/04/18 04:39 06/04/18 04:45 Norflex PO 06/04/18 04:40 100 mg ONETIME ONE Administration - Radiology Interpretation Free Text/Narrative:: 73-year-old female presents to the ED just generally not feeling well. She reports feeling hot and cold flushed very anxious feeling. She is suffering chronic pain left knee since surgery with total knee replacement April 10. After frozen knee because of pain and immobility and underwent general anesthetic to release the knee joint capsule under anesthesia last week. And on oxycodone tablets since the time of surgery. Yesterday she took 5 tablets in total. Some Norflex 100 mg 3 times daily. She reports that she has a markedly disrupted sleep pattern for many weeks. Tonight she just feels so ill after waking up at 11:00. She went to bed feeling fine with very little pain in her left knee taking one oxycodone tablet before bed. She is acting as almost as if she is having a withdrawal from narcotics. No nausea anxiety hot cold flushed feelings. Plan routine labs will be collected. Urinalysis as well. Plan will be IV D5 normal saline at 250 mils per hour. Will give her Ativan 1 mg IV and Phenergan 25 mg IV for nausea relief and anxiety. - Re-Assessments/Exams Free Text/Narrative Re-Assessment/Exam: 06/04/18 04:40 having increased pain and muscle spasms in her left lower extremity. We'll give her Dilaudid 0.5 mg IV and Norflex 100 mg by mouth which will take an hour or so to work. 06/04/18 04:41 Labs reveal a normal white count at 4.93. Differential 60% neutrophils and no band cells. Hemoglobin 12.9 with hematocrit of 38.9. Platelet count is 294,000. Sodium 137 with a potassium of 3.5. Chloride 103 with a bicarbonate of 24. And a gap is normal at 13.5. BUN is 9 with a creatinine of 0.9. GFR is greater than 60. Glucose is 97. Calcium is 8.9. Liver function is normal. C-reactive protein 0.8. Total protein 7.2 with an albumin fraction of 3.5. Departure - Departure Time of Disposition: 05:49 Disposition: Home, Self-Care 01 Condition: Fair Clinical Impression: Exhaustion, Status post total knee replacement, left Insomnia disorder Qualifiers: Insomnia type: due to medical condition Qualified Code(s): G47.01 - Insomnia due to medical condition - Discharge Information *PRESCRIPTION DRUG MONITORING PROGRAM REVIEWED*: Not Applicable *COPY OF PRESCRIPTION DRUG MONITORING REPORT IN PATIENT SUMAN: Not Applicable Prescriptions: ClonazePAM [KlonoPIN] 2 mg PO BEDTIME #30 tab Referrals: Brii Esparza MD [Primary Care Provider] - Forms: ED Department Discharge Additional Instructions: Evaluation the emergency room tonight in regards to chronic pain syndrome involving left knee. Left knee was replaced April 10 and continues to give you all kinds of problems and pain. Presentation to the ED tonight you were found to be quite anxious and feeling hot cold flushed. These signs and symptoms suggested possible drug withdrawal symptoms. Is questionable whether your body has become more dependent on narcotics for pain relief area I would agree with continue with the Percocet 2 tablets before physiotherapy only if you can. Continue Norflex as needed for muscle cramping in her leg. I believe overall you'll are suffering from exhaustion from lack of sleep over the last 2 months. Suggest use of clonazepam 2 mg at bedtime to aid sleep. I would suggest trying one half tablet or 1 mg first to see if this does the trick but if you' re still not sleeping in an hour or 2 after taking 1 mg you could take the full 2 mg tablet. In the ED received a medication called Ativan 1 mg to help with anxiety. Phenergan 25 mg IV for nausea relief. Then you developed increased pain and muscle spasms in her left leg and receive Dilaudid 0.5 mg for pain relief and a Norflex 100 mg by mouth. Just home to bed for now. 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. Follow-up with Dr. Bhatt as planned - My Orders Last 24 Hours: My Active Orders 06/04/18 03:18 URINALYSIS W/MICROSCOPIC [UA W/MICROSCOPIC] [URIN] Stat 06/04/18 03:30 Dextrose 5%-0.9% NaCl [Dextrose 5%-Normal Saline] 1,000 ml IV ASDIRECTED - Assessment/Plan Last 24 Hours: My Active Orders 06/04/18 03:18 URINALYSIS W/MICROSCOPIC [UA W/MICROSCOPIC] [URIN] Stat 06/04/18 03:30 Dextrose 5%-0.9% NaCl [Dextrose 5%-Normal Saline] 1,000 ml IV ASDIRECTED
[2018-06-04] MEDS ORDERED: Dextrose 5%-0.9% NaCl 1,000 ML IV SCH (03:30)
[2018-06-04] MEDS ORDERED: Orphenadrine 100 MG Tab.ER PO ONE (04:39)
[2018-06-04] MEDS ORDERED: HYDROmorphone 1 MG/ML Syringe IVPUSH ONE (04:39)
== END 2018-06-04 06:00 | disposition home or self-care (01) ==
LOC: JD.ED 02:52
DX: R53.83 Other fatigue (principal); G47.01 Insomnia due to medical condition; Z96.652 Presence of left artificial knee joint; E78.00 Pure hypercholesterolemia, unspecified; Z79.899 Other long term (current) drug therapy; Z88.8 Allergy status to other drugs, medicaments and biological substances
CPT/HCPCS: 36415; 80053; 85007; 85027; 86140; 96361; 96365; 96375; 99284; A9270; J1170; J2060; J2550; J7042; J7050

== ENCOUNTER 2018-11-13 06:23 | Day surgery (SDC) | payer MEDICARE, OTHER ==
[~2018-11-13 06:23] MED LIST changes: -HYDROmorphone 0.5 MG/0.5 ML Syringe IVPUSH PRN; -HYDROmorphone 0.5 MG/0.5 ML Syringe ONE; -Ketamine 500 mg/10 ML MDV ONE; -Ketorolac 30 MG/ML SDV ONE; -Lidocaine 1% PF 2 ML SDV ONE; -Midazolam 1 MG/ML 2 ML SDV ONE; -Ondansetron 4 MG/2 ML SDV IVPUSH PRN; -Propofol 200 MG/20 ML SDV ONE; -fentaNYL 100 MCG/2 ML SDV IVPUSH PRN; -fentaNYL 100 MCG/2 ML SDV ONE
[2018-11-13] MEDS ORDERED: Ketamine 500 mg/10 ML MDV ONE (06:38)
[2018-11-13] MEDS ORDERED: fentaNYL 250 MCG/5 ML SDV ONE (06:38)
[2018-11-13] MEDS ORDERED: Propofol 200 MG/20 ML SDV ONE (06:38)
[2018-11-13] MEDS ORDERED: HYDROmorphone 1 MG/ML Syringe ONE (06:38)
[2018-11-13] MEDS ORDERED: Midazolam 1 MG/ML 2 ML SDV ONE (06:38)
[2018-11-13] MEDS ORDERED: Lidocaine 1% 4 ML ONE (06:39)
[2018-11-13] MEDS ORDERED: Ondansetron 4 MG/2 ML SDV ONE (06:39)
--- NOTE | 2018-11-13 07:42 | PCM48HPAN ---
Post Anesthesia Note - EVALUATION WITHIN 48HRS OF ANESTHETIC Vital Signs in Normal Range: Yes Patient Participated in Evaluation: Yes Respiratory Function Stable: Yes Airway Patent: Yes Cardiovascular Function Stable: Yes Hydration Status Stable: Yes Pain Control Satisfactory: Yes Nausea and Vomiting Control Satisfactory: Yes Mental Status Recovered: Yes Vital Signs: Last Vital Signs Temp 98.9F 11/13/18 0723 Pulse 62 11/13/18 0723 Resp 16 11/13/18 0723 BP 125/75 11/13/18 0723 Pulse Ox 99 11/13/18 0723
--- NOTE | 2018-11-13 07:58 | PCM.PREANE ---
Preanesthetic Assessment - Anesthesia/Transfusion/Family Hx Anesthesia History: Prior Anesthesia Without Reaction Family History of Anesthesia Reaction: No Transfusion History: No Prior Transfusion(s) - Review of Systems General: Weakness, Fatigue, Appetite Pulmonary: No Symptoms Cardiovascular: No Symptoms Gastrointestinal: Decreased Appetite Neurological: No Symptoms Other: Reports: Easy Bleeding (Anticoagulated due to history of PE/DVT. ), Easy Bruising, Depression, Anxiety - Physical Assessment NPO Status Date: 11/12/18 NPO Status Time: 22:00 Vital Signs: Last Vital Signs Temp 37.2 C 11/13/18 07:50 Pulse 57 L 11/13/18 07:50 Resp 16 11/13/18 07:50 BP 115/62 11/13/18 07:50 Pulse Ox 97 11/13/18 07:50 Vitas Signs Preoperative 97.6 16 102/57 65 100% Height: 1.75 m Weight: 67.585 kg ASA Class: 2 Mental Status: Alert & Oriented x3 Airway Class: Mallampati = 1 Dentition: Reports: Implants (Top left) Thyro-Mental Finger Breadths: 3 Mouth Opening Finger Breadths: 3 ROM/Head Extension: Full Lungs: Clear to Auscultation, Normal Respiratory Effort Cardiovascular: Regular Rate, Regular Rhythm - Allergies Allergies/Adverse Reactions: Allergies Allergy/AdvReac Type Severity Reaction Status Date / Time rosuvastatin AdvReac Muscle Verified 11/10/18 14:33 Aches - Anesthesia Plan Pre-Op Medication Ordered: Anxiolytic - Acknowledgements Anesthesia Type Planned: MAC Pt an Appropriate Candidate for the Planned Anesthesia: Yes Alternatives and Risks of Anesthesia Discussed w Pt/Guardian: Yes Pt/Guardian Understands and Agrees with Anesthesia Plan: Yes PreAnesthesia Questionnaire HEENT History: Reports: Impaired Vision, Other (See Below) Other HEENT History: pt wears glasses Cardiovascular History: Reports: Blood Clots/VTE/DVT, High Cholesterol Other Cardiovascular History: leg venous ligation Respiratory History: Reports: PE Gastrointestinal History: Reports: Chronic Constipation, GERD Genitourinary History: Reports: None 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: Musculoskeletal History: Reports: Back Pain, Chronic, Osteoarthritis, Other ( See Below) Other Musculoskeletal History: shoulder impingement, tibilais tendinitis, lower limb mononeuritis, congeintal pev cavus of right heel Neurological History: Reports: None Psychiatric History: Reports: Anxiety, Depression Endocrine/Metabolic History: Reports: Osteopenia, Vitamin D Deficiency Hematologic History: Reports: None Immunologic History: Reports: None Oncologic (Cancer) History: Reports: None Dermatologic History: Reports: None - Infectious Disease History Infectious Disease History: Reports: Measles - Past Surgical History Head Surgeries/Procedures: Reports: None HEENT Surgical History: Reports: None Cardiovascular Surgical History: Reports: Varicose Respiratory Surgical History: Reports: None GI Surgical History: Reports: Appendectomy, Cholecystectomy, Colonoscopy, Lysis of Adhesions Other GI Surgeries/Procedures: adhesions Female Surgical History: Reports: Cystoscopy, Hysterectomy Male Surgical History: Reports: None Endocrine Surgical History: Reports: None Neurological Surgical History: Reports: None Musculoskeletal Surgical History: Reports: Knee Replacement, Shoulder Surgery Oncologic Surgical History: Reports: None Dermatological Surgical History: Reports: None - SUBSTANCE USE Smoking Status *Q: Never Smoker Recreational Drug Use History: No - HOME MEDS Home Medications: Home Meds Rivaroxaban [Xarelto] 20 mg PO DAILY 04/07/18 [History] Calcium Carbonate [Calcium] 600 mg PO BID 07/22/18 [History] Cholecalciferol (Vitamin D3) [Vitamin D3] 2,000 unit PO DAILY 07/22/18 [History] Multivitamin [Poly-Vitamin] 1 tab PO DAILY 07/22/18 [History] Sertraline HCl [Zoloft] 50 mg PO DAILY 07/22/18 [History] clonazePAM [Clonazepam] 0.5 mg PO BEDTIME PRN 07/22/18 [History] Bisacodyl [Dulcolax] 5 mg PO DAILY PRN tablet 07/24/18 [Rx] Docusate Sodium [Colace] 100 mg PO BID cap 07/24/18 [Rx] Magnesium Hydroxide [Milk of Magnesia] 30 ml PO BID PRN cup 07/24/18 [Rx] Orphenadrine Citrate [Orphenadrine Citrate ER] 100 mg PO BID PRN #60 tablet.er 07/24/18 [Rx] Sennosides [Senna] 8.6 mg PO BID PRN tablet 07/24/18 [Rx] Gabapentin [Neurontin] 300 mg PO DAILY #30 cap 07/27/18 [Rx] hydrOXYzine HCl [hydrOXYzine] 25 mg PO TID PRN #40 tablet 07/27/18 [Rx] Acetaminophen/HYDROcodone [[place] 325-5 MG] 1 - 2 tab PO Q6H PRN #30 tablet 11/13 [Rx] - CURRENT (IN HOUSE) MEDS Current Meds: Current Medications Lactated Ringer's (Ringers, Lactated) 1,000 mls @ 125 mls/hr IV ASDIRECTED TIAN Stop: 11/13/18 23:00 Last Admin: 11/13/18 06:50 Dose: 125 mls/hr Lidocaine/Sodium Bicarbonate (Buffered Lidocaine 1% In Ns 8.4%) 0.25 ml IDERM ONETIME PRN PRN Reason: Prior to IV Start Stop: 11/13/18 18:00 Last Admin: 11/13/18 06:50 Dose: 0.25 ml Sodium Chloride (Saline Flush) 10 ml FLUSH ASDIRECTED PRN PRN Reason: Keep Vein Open Stop: 11/13/18 18:00 Discontinued Medications Fentanyl (Sublimaze) Confirm Administered Dose 250 mcg .ROUTE .STK-MED ONE Stop: 11/13/18 06:39 Hydromorphone HCl (Dilaudid) Confirm Administered Dose 1 mg .ROUTE .STK-MED ONE Stop: 11/13/18 06:39 Lidocaine HCl (Xylocaine-Mpf 1%) Confirm Administered Dose 4 mls @ as directed .ROUTE .STK-MED ONE Stop: 11/13/18 06:40 Ketamine HCl (Ketalar) Confirm Administered Dose 500 mg .ROUTE .STK-MED ONE Stop: 11/13/18 06:39 Midazolam HCl (Versed 1 Mg/Ml) Confirm Administered Dose 2 mg .ROUTE .STK-MED ONE Stop: 11/13/18 06:39 Ondansetron HCl (Zofran) Confirm Administered Dose 4 mg .ROUTE .STK-MED ONE Stop: 11/13/18 06:40 Propofol (Diprivan 20 Ml) Confirm Administered Dose 200 mg .ROUTE .STK-MED ONE Stop: 11/13/18 06:39
[2018-11-13 09:19] VITALS: BP 119/66
--- NOTE | 2018-11-15 09:07 | PCM.OPNOTE ---
- General Post-Op/Procedure Note Date of Surgery/Procedure: 11/13/18 Operative Procedure(s): manipulation under anesthesia of left total knee arthroplasty Pre Op Diagnosis: left total knee arthrofribrosis Post-Op Diagnosis: Same Anesthesia Technique: MAC Primary Surgeon: Randy Bhatt Anesthesia Provider: Georgette Sosa EBL in mLs: 0 Complications: None Condition: Good
--- NOTE | 2018-11-17 09:46 | OR ---
DATE OF OPERATION: 11/13/2018 SURGEON: Randy Bhatt MD OPERATION PERFORMED: Manipulation under anesthesia of left total knee arthroplasty. PREOPERATIVE DIAGNOSIS: Left total knee arthrofibrosis. POSTOPERATIVE DIAGNOSIS: Left total knee arthrofibrosis. ANESTHESIA: MAC sedation. ANESTHESIA PROVIDER: Cecy Perla. ESTIMATED BLOOD LOSS: Not applicable. COMPLICATIONS: None. CONDITION: Stable. DESCRIPTION OF PROCEDURE: The patient was identified in the preop holding area where proper site was marked and identified by the surgeon. The patient was taken back to the operating theater where after adequate anesthesia, pre-manipulation motion was measured, it was 1 to 95 degrees. At that point, it was a hard stop motion. After manipulation, I was able to bend the patient to 130 degrees. It was stable throughout range of motion. There was no catch or locking or popping noted throughout the smooth range of motion. At this time, the patient was sent to PACU in stable condition and will follow up in roughly 2 weeks' time. MMODAL /[id number]
== END 2018-11-13 09:04 | disposition home or self-care (01) ==
LOC: JD.SDS 06:23
PROVIDERS: ATTEND Orthopaedic Surgery
DX: M24.662 Ankylosis, left knee (principal); E78.00 Pure hypercholesterolemia, unspecified; E55.9 Vitamin D deficiency, unspecified; K59.09 Other constipation; F41.9 Anxiety disorder, unspecified; F32.9 Major depressive disorder, single episode, unspecified; R19.5 Other fecal abnormalities; M85.89 Other specified disorders of bone density and structure, multiple sites; R63.4 Abnormal weight loss; Z68.22 Body mass index [BMI] 22.0-22.9, adult; Z88.8 Allergy status to other drugs, medicaments and biological substances; Z96.652 Presence of left artificial knee joint; Z87.891 Personal history of nicotine dependence; Z86.711 Personal history of pulmonary embolism; Z79.01 Long term (current) use of anticoagulants; Z79.899 Other long term (current) drug therapy
CPT/HCPCS: 27570; J2001; J2250; J2405; J2704; J3010; J7120; J1170